=== PATIENT | male | born 1955 | race Hispanic/Latino ===

== ENCOUNTER → 2018-11-05 | Day surgery (SDC) | payer MEDICARE ==
[2018-11-03 16:16] LABS: BASOPHILS % 0.5 % (0.0-1.0); EOSINOPHILS # (AUTO) 0.1 (0.0-0.4); EOSINOPHILS % 1.8 % (0.0-6.0); HEMATOCRIT 30.8 % (38.2-49.6); HEMOGLOBIN 10.5 g/dL (14.0-18.0); LYMPHOCYTES # (AUTO) 1.6 (1.0-3.2); LYMPHOCYTES % 29.4 % (18.0-39.1); MEAN CORPUSCULAR HEMOGLOBIN 28.9 pg (28-32); MEAN CORPUSCULAR HGB CONC 34.1 g/dL (31-35); MEAN CORPUSCULAR VOLUME 84.8 fL (81-99); MONOCYTES # (AUTO) 0.4 (0.2-0.8); MONOCYTES % 6.4 % (4.4-11.3); NEUTROPHILS # (AUTO) 3.4 (2.1-6.9); NEUTROPHILS % 61.5 % (38.7-80.0); PLATELET COUNT 172 x10e3/uL (140-360); RED BLOOD COUNT 3.63 x10e6/uL (4.3-5.7); RED CELL DISTRIBUTION WIDTH 14.8 % (11.7-14.4)
[2018-11-03 16:33] LABS: ANION GAP 14.7 mmol/L (8-16); BLOOD UREA NITROGEN 12 mg/dL (7-26); BUN/CREATININE RATIO 13 (6-25); CALCIUM 9.8 mg/dL (8.4-10.2); CARBON DIOXIDE 24 mmol/L (22-29); CHLORIDE 100 mmol/L (98-107); CREATININE, SERUM 0.91 mg/dL (0.72-1.25); EST GLOMERULAR FILTRATION RATE > 60 ML/MIN (60-); GLUCOSE 227 mg/dL (74-118); POTASSIUM 3.7 mmol/L (3.5-5.1); SODIUM 135 mmol/L (136-145)
--- NOTE | 2018-11-03 16:53 | Diagnostic Imaging Report ---
EXAM: CHEST 2 VIEWS, PA and lateral DATE: 11/03/2018 Time stamp on exam: 4:07 PM INDICATION: Preoperative COMPARISON: None FINDINGS: LINES/TUBES: None LUNGS: Focal tree-in-bud opacities in the right lung base may be secondary to chronic changes. Comparison with old studies would be of benefit. If not available a CT scan of the chest may provide additional information. No consolidation or edema. PLEURA: No effusions or pneumothorax. HEART AND MEDIASTINUM: Normal size and contour. BONES AND SOFT TISSUES: Degenerative changes of the spine. IMPRESSION: Right lung base tree-in-bud opacities. Signed by: Dr. Donovan Sandoval DO on 11/03/2018 4:49 PM
--- NOTE | 2018-11-03 17:24 | Diagnostic Imaging Report ---
RADIOGRAPH(S) OF THE ABDOMEN AND PELVIS, 2 view(s) HISTORY: Preop, kidney surgery, stent, stones COMPARISON: None available. FINDINGS: On one of the images, a catheter projects over the right hemipelvis proximal coil projects in the superior aspect of the right sacral ala and the distal coil projects over the soft tissues of the perineum. Multiple nonspecific calcifications in the right hemipelvis and in the region of the prostate gland. The bones are partially obscured by stool and overlying bowel gas. A 1.7 cm nonaggressive sclerotic density projects at the left iliac bone, this may reflect a bone island or radiopaque bowel contents. IMPRESSION: 1. A catheter projects at the right hemipelvis and soft tissues of the perineum, correlate if this is within or overlying the patient. 2. Multiple nonspecific pelvic calcifications. 3. A 1.7 cm nonaggressive sclerotic density projects at the left iliac bone, this may reflect a bone island or radiopaque bowel contents. Signed by: Dr. Ishan Salmon D.O., M.M.M. on 11/03/2018 5:20 PM
[~2018-11-05] MED LIST: ATORVASTATIN CA20 MG PO; BELLADONNA/OPIUM 30 MG SUPP RC ONE; CEFTRIAXONE SOD 1 GM/NS 50 ML 50 ML IV ONE; DEXAMETHASONE SOD PHOS INJ 4 MG/ML VIAL ONE; DOXYCYCLINE HY100 MG PO; EPHEDRINE SULFATE INJ 50 MG/10 ML SYR ONE; FENTANYL CITRATE/PF 100MCG/2 ML INJ ONE; GENTAMICIN 80MG/NS 100 ML 200 ML IV ONE; HUMULIN R100 UNIT/2 SQ; IOPAMIDOL 610MG/1ML 300 MG/ML VIAL IV ONE; LIDOCAINE HCL 2% LOCAL INJ 5 ML SDV VIAL INJ ONE; LISINOPRIL10 MG PO; METFORMIN HCL500 M2 PO; MIDAZOLAM HCL 2 MG/2 ML VIAL ONE; ONDANSETRON HCL INJ 2MG/ML 2ML 2 MG/ML VIAL ONE; PROPOFOL IV EMULSION 10 MG/ML 20 ML VIAL ONE; SEVOFLURANE INHAL SOLN 250 ML PEN BTL ONE; ZOLPIDEM TARTRA10 MG PO
--- OUTSIDE RECORDS SUMMARY | 2018-11-05 09:29 | XMS REPORT | Clinical Summary ---
Author Author [facility] Address Unknown Phone Unavailable Care Team Providers Care Overseamer Name Role Phone Jenny Chacon MD PCP Allergies No Known Allergies Medications End Date Status Medication Sig Dispensed Refills Start Date Active linaclotide (LINZESS) 145 Take 145 mcg 0 mcg capsule by mouth daily before breakfast. Active lisinopril Take 10 mg by 0 (PRINIVIL,ZESTRIL) 10 mg mouth daily. tablet Active metFORMIN (GLUCOPHAGE) Take 1,000 mg 0 1,000 mg tablet by mouth 2 (two) times a day with meals. Active omeprazole (PriLOSEC) 40 Take 40 mg by 0 MG capsule mouth daily. Active oxybutynin (DITROPAN) 5 Take 5 mg by 0 MG tablet mouth 2 (two) times a day. Active tamsulosin (FLOMAX) 0.4 Take 0.4 mg 0 mg capsule by mouth 2 (two) times a day. Active insulin GLARGINE (LANTUS) Inject 50 0 100 unit/mL injection Units under (vial) the skin nightly. Active diazePAM (VALIUM) 2 MG Take 10 mg by 0 tablet mouth nightly. Active cyanocobalamin (VITAMIN Take 500 mcg 0 B-12) 500 MCG tablet by mouth daily. Active ciprofloxacin (CIPRO) 500 Take 500 mg 0 07/16/201 MG tablet by mouth 2 8 (two) times a day. Active levothyroxine (SYNTHROID, Take 50 mcg 0 LEVOXYL) 50 mcg tablet by mouth every morning. Active zolpidem (AMBIEN) 10 mg Take 10 mg by 0 tablet mouth nightly as needed for sleep. 07/20/2018 Discontinued cefuroxime (CEFTIN) 250 Take 250 mg 0 07/16/201 MG tablet by mouth 2 8 (two) times a day. 08/19/2018 dexamethasone (DECADRON) Take 1 tablet 60 tablet 0 4 MG tablet (4 mg total) 8 by mouth 2 (two) times a day with meals for 30 days. 07/30/2018 cefuroxime (CEFTIN) 500 Take 1 tablet 20 tablet 0 MG tablet (500 mg 8 total) by mouth 2 (two) times a day for 10 days. Active Problems Not on file Encounters Care Team Description Date Type Specialty John Loco MD No Show 07/21/2018 Hospital Radiology Encounter Anne-Marie Cross MA Suprasellar mass (Primary Dx) 07/21/2018 Orders Only Neurosurgery Tung Treviño MD Suprasellar mass (Primary Dx); Acute UTI 07/20/2018 Emergency Emergency Medicine after 11/04/2017 Social History Date Tobacco Use Types Packs/Day Years Used Former Smoker Smokeless Tobacco: Never Used Comments: quit 14 yrs ago Alcohol Use Drinks/Week oz/Week Comments Yes Sex Assigned at Date Recorded Not on file Industry Job Start Date Occupation Not on file Not on file Not on file Travel End Travel History Travel Start No recent travel history available. Last Filed Vital Signs Time Taken Vital Sign Reading 07/20/2018 9:14 PM LITHOGRAPHIC PROOFER Blood Pressure 149/70 07/20/2018 9:14 PM LITHOGRAPHIC PROOFER Pulse 63 07/20/2018 9:14 PM LITHOGRAPHIC PROOFER Temperature 36.2 C (97.2 F) 07/20/2018 9:14 PM LITHOGRAPHIC PROOFER Respiratory Rate 20 07/20/2018 9:14 PM LITHOGRAPHIC PROOFER Oxygen Saturation 99% - Inhaled Oxygen - Concentration 07/20/2018 9:14 PM LITHOGRAPHIC PROOFER Weight 83.9 kg (185 lb) 07/20/2018 9:14 PM LITHOGRAPHIC PROOFER Height 170.2 cm (5' 7") 07/20/2018 9:14 PM LITHOGRAPHIC PROOFER Body Mass Index 28.98 Plan of Treatment Health Maintenance Due Date Last Done Comments COLON CANCER SCREENING 2003 SHINGLES VACCINES (#1) 2003 INFLUENZA VACCINE 04/14/2018 65+ PNEUMOCOCCAL VACCINE 2018 (1 of 2 - PCV13) PNEUMOCOCCAL 2018 POLYSACCHARIDE VACCINE AGE 65 AND OVER Procedures Comments Procedure Name Priority Date/Time Associated Diagnosis URINALYSIS STAT 07/20/2018 10:00 PM LITHOGRAPHIC PROOFER GRAM STAIN Routine 07/20/2018 10:00 PM LITHOGRAPHIC PROOFER URINE CULTURE Routine 07/20/2018 10:00 PM LITHOGRAPHIC PROOFER MANUAL DIFFERENTIAL STAT 07/20/2018 9:35 PM LITHOGRAPHIC PROOFER ESTIMATED GFR STAT 07/20/2018 9:35 PM LITHOGRAPHIC PROOFER COMPREHENSIVE METABOLIC STAT 07/20/2018 PANEL 9:35 PM LITHOGRAPHIC PROOFER CBC WITH PLATELET AND STAT 07/20/2018 DIFFERENTIAL 9:[address] STROKE BRAIN WO STAT 07/20/2018 CONTRAST 9:31 PM LITHOGRAPHIC PROOFER after 11/04/2017 Results * Urinalysis (07/20/2018 10:00 PM LITHOGRAPHIC PROOFER) Glucose, UA Negative Negative [facility] Bilirubin, UA Negative Negative [facility] Ketones, UA Negative Negative [facility] Specific gravity, UA 1.010 1.001 - 1.035 [facility] Blood, UA Trace (A) Negative [facility] pH, UA 7.0 5.0 - 8.5 [facility] Protein, UA Negative Negative [facility] Urobilinogen, UA <2.0 <2.0 [facility] Nitrite, UA Negative Negative [facility] Leukocyte esterase, UA Large (A) Negative [facility] Color, UA Yellow [facility] Appearance, UA Clear [facility] Specimen Urine Performing Organization Address City/State/Zipcode Phone Number [address], [place] [address] PATHOLOGY AND GENOMIC 140 MEDICINE, [facility] * Gram stain (07/20/2018 10:00 PM LITHOGRAPHIC PROOFER) Gram stain result Occasional WBC's [facility] DEPARTMENT OF No organisms seen PATHOLOGY AND Comment: GENOMIC MEDICINE Specimen Information Specimen Source: Urine Specimen Site: Urine, clean catch Specimen Urine - Urine, clean catch Performing Organization Address City/State/Zipcode Phone Number [facility] DEPARTMENT OF [address] [place] [address] PATHOLOGY AND GENOMIC MEDICINE * Urine culture (07/20/2018 10:00 PM LITHOGRAPHIC PROOFER) Urine culture isolate Escherichia coli [facility] DEPART[facility] OF 10-4 cfu/ml PATHOLOGY AND This isolate is a enamel drier of GENOMIC MEDICINE ESBL (extended spectrum beta lactamase).This organism may be clinically resistant to penicillins, cephalosporins or aztreonam despite apparent in vitro susceptibility to some of these agents. (A) Comment: Specimen Information Specimen Source: Urine Specimen Site: Urine, clean catch Specimen Urine - Urine, clean catch Antibiotic Method Susceptibility Organism Ampicillin FILOMENA >16 mcg/mL: Resistant Escherichia coli Amoxicillin/Clavulanate FILOMENA 8/4 mcg/mL: Resistant Escherichia coli Amikacin FILOMENA <=4 mcg/mL: Susceptible Escherichia coli Aztreonam FILOMENA >16 mcg/mL: Resistant Escherichia coli Ceftazidime FILOMENA >16 mcg/mL: Resistant Escherichia coli Ciprofloxacin FILOMENA >2 mcg/mL: Resistant Escherichia coli Ceftriaxone FILOMENA >32 mcg/mL: Resistant Escherichia coli Cefuroxime Sodium FILOMENA >16 mcg/mL: Resistant Escherichia coli Cefazolin FILOMENA >32 mcg/mL: Resistant Escherichia coli Cefepime FILOMENA >16 mcg/mL: Resistant Escherichia coli Nitrofurantoin FILOMENA 32 mcg/mL: Susceptible Escherichia coli Gentamicin FILOMENA >8 mcg/mL: Resistant Escherichia coli Imipenem FILOMENA <=0.25 mcg/mL: Susceptible Escherichia coli Levofloxacin FILOMENA >4 mcg/mL: Resistant Escherichia coli Meropenem FILOMENA <=0.125 mcg/mL: Susceptible Escherichia coli Tobramycin FILOMENA 8 mcg/mL: Resistant Escherichia coli Ampicillin/Sulbactam FILOMENA >16/8 mcg/mL: Resistant Escherichia coli Trimethoprim/Sulfamethoxazole FILOMENA >2/38 mcg/mL: Resistant Escherichia coli Tetracycline FILOMENA <=1 mcg/mL: Susceptible Escherichia coli Ertapenem FILOMENA <=0.125 mcg/mL: Susceptible Escherichia coli Tigecycline FILOMENA <=0.5 mcg/mL: Susceptible Escherichia coli Cefotaxime FILOMENA mcg/mL: Resistant Escherichia coli Cephalothin FILOMENA mcg/mL: Resistant Escherichia coli Fosfomycin KB mm: Susceptible Escherichia coli Performing Organization Address City/State/Zipcode Phone Number [facility] DEPARTMENT [address] [address] PATHOLOGY AND GENOMIC MEDICINE * Estimated GFR (07/20/2018 9:35 PM LITHOGRAPHIC PROOFER) Estimated GFR >=90 mL/min/1.73 m2 DEPARTMENT OF Comment: PATHOLOGY AND [employer]ory[employer]its[employer] GENOMIC MEDICINE, rpretation [place] [address] [facility] >=90 Normal or high G2 60-89Mildly decreased [id number] Mildly to moderately decreased D4p09-14 Moderately to severely decreased G4 15-29Severely decreased G5 <15Kidney failure The eGFR was calculated using the Chronic Kidney Disease Epidemiology Collaboration (CKD-EPI) equation. Interpretation is based on recommendations of the National Kidney Foundation-Kidney Disease Outcomes Quality Initiative (NKF-KDOQI) published in 2014. Specimen Plasma specimen Performing Organization Address City/[facility]/Zipcode Phone Number [address] [address] PATHOLOGY AND GENOMIC 140 MEDICINE, [facility] * Manual differential (07/20/2018 9:35 PM LITHOGRAPHIC PROOFER) Manual differential PERFORMED [facility] DEPARTMENT OF PATHOLOGY AND GENOMIC MEDICINE Neutrophils 65.0 39.0 - 69.0 % [facility] DEPARTMENT OF PATHOLOGY AND GENOMIC MEDICINE Lymphocytes 24.0 (L) 25.0 - 45.0 % [facility] DEPARTMENT OF PATHOLOGY AND GENOMIC MEDICINE Monocytes 8.0 0.0 - 10.0 % [facility] DEPARTMENT OF PATHOLOGY AND GENOMIC MEDICINE Eosinophils 3.0 0.0 - 5.0 % [facility] DEPARTMENT OF PATHOLOGY AND GENOMIC MEDICINE Basophils 0.0 0.0 - 1.0 % [facility] DEPARTMENT OF PATHOLOGY AND GENOMIC MEDICINE Metamyelocytes 0 % [facility] DEPARTMENT OF PATHOLOGY AND GENOMIC MEDICINE Promyelocytes 0 % [facility] DEPARTMENT OF PATHOLOGY AND GENOMIC MEDICINE Platelet slide review Decreased (A) [facility] DEPARTMENT OF PATHOLOGY AND GENOMIC MEDICINE Anisocytosis Moderate [facility] DEPARTMENT OF PATHOLOGY AND GENOMIC MEDICINE Polychromasia Moderate [facility] DEPARTMENT OF PATHOLOGY AND GENOMIC MEDICINE Ovalocytes Moderate [facility] DEPARTMENT OF PATHOLOGY AND GENOMIC MEDICINE Lagrange cells Moderate (A) [facility] DEPARTMENT OF PATHOLOGY AND GENOMIC MEDICINE Enlarged platelets Moderate (A) [facility] DEPARTMENT OF PATHOLOGY AND GENOMIC MEDICINE Performing Organization Address City/[facility]/Zipcode Phone Number [facility] DEPARTMENT [address] [place] [address] PATHOLOGY AND GENOMIC MEDICINE * CBC with platelet and differential (07/20/2018 9:35 PM LITHOGRAPHIC PROOFER) WBC 5.58 4.50 - 11.00 k/uL [facility] RBC 3.36 (L) 4.40 - 6.00 m/uL [facility] HGB 10.1 (L) 14.0 - 18.0 g/dL [facility] HCT 28.6 (L) 41.0 - 51.0 % [facility] MCV 85.1 82.0 - 100.0 fL [facility] MCH 30.1 27.0 - 34.0 pg [facility] MCHC 35.3 31.0 - 37.0 g/dL [facility] RDW - SD 41.2 37.0 - 55.0 fL [facility] MPV 10.7 8.8 - 13.2 fL [facility] Platelet count 106 (L) 150 - 400 k/uL [facility] Neutrophils 65.0 39.0 - 69.0 % [facility] Lymphocytes 24.0 (L) 25.0 - 45.0 % [facility] Monocytes 8.0 0.0 - 10.0 % [facility] Eosinophils 3.0 0.0 - 5.0 % [facility] Basophils 0.0 0.0 - 1.0 % [facility] Specimen Blood Performing Organization Address City/State/Zipcode Phone Number [address] [place] [address] PATHOLOGY AND GENOMIC [facility] [address] [place] [id number] [facility] * Comprehensive metabolic panel (07/20/2018 9:35 PM LITHOGRAPHIC PROOFER) Sodium 127 (L) 135 - 148 mEq/L [facility] Potassium 3.8 3.5 - 5.0 mEq/L [facility] Chloride 97 (L) 98 - 112 mEq/L [facility] CO2 27 24 - 31 mEq/L [facility] Anion gap 3@ANIO (L) 7 - 15 mEq/L [facility] BUN 11 8 - 23 mg/dL [facility] Creatinine 0.78 0.70 - 1.20 mg/dL [facility] Glucose 230 (H) 65 - 99 mg/dL [facility] Calcium 8.8 8.8 - 10.2 mg/dL [facility] Protein 6.4 6.3 - 8.3 g/dL [facility] Albumin 3.2 (L) 3.5 - 5.0 g/dL [facility] A/G ratio 1.0 0.7 - 3.8 [facility] Alkaline phosphatase 46 40 - 129 U/L [facility] AST 13 10 - 50 U/L [facility] ALT 12 5 - 50 U/L [facility] Total bilirubin 0.2 0.0 - 1.2 mg/dL [facility] Specimen Plasma specimen Performing Organization Address City/State/Zipcode Phone Number [address] [address] PATHOLOGY AND GENOMIC [address] [place] [address] * CT Stroke Brain Wo Contrast (07/20/2018 9:31 PM LITHOGRAPHIC PROOFER) Narrative Performed At EXAMINATION: CT STROKE BRAIN WO CONTRAST RADIANT CLINICAL HISTORY: headache COMPARISON:None. TECHNIQUE: Noncontrast enhanced images of the brain were obtained from the skull base to the vertex. Both soft tissue and bone reconstruction algorithms were performed. CT scans are performed using radiation dose reduction techniques (iterative reconstruction and/or automated exposure control). Technical factors are evaluated and adjusted to ensure appropriate moderation of exposure. Automated dose management technology is applied to adjust radiation exposure while achieving a diagnostic quality image. FINDINGS: Slightly hyperdense sellar/suprasellar mass resulting in expansion of the sella, most likely representing a pituitary adenoma. This results in thinning of the clivus and dorsally, likely invasion of the right cavernous sinus, as well as invasion of the sphenoid sinus. There is no convincing evidence of hemorrhage on this noncontrast CT. No acute intracranial abnormality. Specifically, no acute ischemia, intracranial hemorrhage, or other mass. IMPRESSION: Sellar/suprasellar mass most likely represents a pituitary adenoma. Recommend correlation with MRI with and without contrast to confirm extent of disease (specify pituitary mass protocol). This can be done on a nonemergent basis. Findings discussed with TUNG TREVIÑO at 07/20/2018 9:32 PM, with acknowledgement of understanding. [facility]-[id number] Procedure Note Interface, Radiology Results Incoming - 07/20/2018 9:39 PM LITHOGRAPHIC PROOFER EXAMINATION: CT STROKE BRAIN WO CONTRAST CLINICAL HISTORY: headache COMPARISON: None. TECHNIQUE: Noncontrast enhanced images of the brain were obtained from the skull base to the vertex. Both soft tissue and bone reconstruction algorithms were performed. CT scans are performed using radiation dose reduction techniques (iterative reconstruction and/or automated exposure control). Technical factors are evaluated and adjusted to ensure appropriate moderation of exposure. Automated dose management technology is applied to adjust radiation exposure while achieving a diagnostic quality image. FINDINGS: Slightly hyperdense sellar/suprasellar mass resulting in expansion of the sella, most likely representing a pituitary adenoma. This results in thinning of the clivus and dorsally, likely invasion of the right cavernous sinus, as well as invasion of the sphenoid sinus. There is no convincing evidence of hemorrhage on this noncontrast CT. No acute intracranial abnormality. Specifically, no acute ischemia, intracranial hemorrhage, or other mass. IMPRESSION: Sellar/suprasellar mass most likely represents a pituitary adenoma. Recommend correlation with MRI with and without contrast to confirm extent of disease (specify pituitary mass protocol). This can be done on a nonemergent basis. Findings discussed with TUNG TREVIÑO at 07/20/2018 9:32 PM, with acknowledgement of understanding. [facility]-[id number] Performing Organization Address City/State/Zipcode Phone Number [facility] [address] [place] [address] after 11/04/2017 Insurance Payer Benefit Subscriber ID Type Phone Address Plan / Group [employer] xxxxxxxxx HMO -AMERIVANT AGE MCR HMO Advance Directives Patient has advance care planning documents on file. For more information, carolyne e contact: Benigno Martínez [address] [place] [address]
--- OUTSIDE RECORDS SUMMARY | 2018-11-05 09:29 | XMS REPORT ---
Author [facility] Address Unknown Phone Unavailable Care Team Providers Care Pull Socket Assembler Name Role Phone CHERYL HOPE Unavailable Unavailable Problems This patient has no known problems. Allergies, Adverse Reactions, Alerts This patient has no known allergies or adverse reactions. Medications This patient has no known medications. Results Test Description Test Time Test Comments Text Results Atomic Results Result Comments ABDOMEN-1VIEW ([facility]) 2018-11-03 17:17:00 [place] [address] Patient Name: PB BEDOLLA MR #: [id number] : 1955 Age/Sex: 63/M Req #: [id number] [facility] Physician: Ordered by: CHERYL HOPE MD Report #: [id number] Location: OR Room/Bed: Procedure: [id number] DX/ABDOMEN-1VIEW ([facility]) Exam Date: 11/03/18 Exam Time: 1613 REPORT STATUS: Signed RADIOGRAPH(S) OF THE ABDOMEN AND PELVIS, 2 view(s) HISTORY: Preop, kidney surgery, stent, stones COMPARISON: None available. FINDINGS: On one of the images, a catheter projects over the right hemipelvis proximal coil projects in the superior aspect of the right sacral ala and the distal coil projects over the soft tissues of the perineum. Multiple nonspecific calcifications in the right hemipelvis and in the region of the prostate gland. The bones are partially obscured by stool and overlying bowel gas. A 1.7 cm nonaggressive sclerotic density projects at the left iliac bone, this may reflect a bone island or radiopaque bowel contents. IMPRESSION: 1. A catheter projects at the right hemipelvis and soft tissues of the perineum, correlate if this is within or overlying the patient. 2. Multiple nonspecific pelvic calcifications. 3. A 1.7 cm nonaggressive sclerotic density projects at the left iliac bone, this may reflect a bone island or radiopaque bowel contents. Signed by: Dr. Debbi Salmon D.O., M.M.M. on 11/03/2018 5:20 PM Dictated By: DEBBI SALMON DO 19 Transcribed By: CHANCE on 11/03/181719 COPY TO: CHERYL HOPE MD CHEST 2 VIEWS 2018-11-03 16:47:00 [place] [address] Patient Name: PB BEDOLLA MR #: [id number] : 1955 Age/Sex: 63/M Req #: [id number] Adm Physician: Ordered by: CHERYL HOPE MD Report #: [id number] Location: OR Room/Bed: Procedure: [id number] DX/CHEST 2 VIEWS Exam Date: 11/03/18 Exam Time: 1613 REPORT STATUS: Signed EXAM: CHEST 2 VIEWS, PA and lateral DATE: 11/03/[address] amp on exam: 4:07 PM INDICATION: Preoperative COMPARISON: None FINDINGS: LINES/TUBES: None LUNGS: Focal tree-in-bud opacities in the right lung base may be secondary to chronic changes. Comparison with old studies would be of benefit. If not available a CT scan of the chest may provide additional information. No consolidation or edema. PLEURA: No effusions or pneumothorax. HEART AND MEDIASTINUM: Normal size and contour. BONES AND SOFT TISSUES: Degenerative changes of the spine. IMPRESSION: Right lung base tree-in-bud opacities. Signed by: Dr. Maria Isabel Sandoval DO on 11/03/2018 4:49 PM Dictated By: MARIA ISABEL SANDOVAL DO 1645 Transcribed By: CHANCE on 11/03/18 1649 COPY TO: CHERYL HOPE MD
[2018-11-05 15:00] VITALS: BP 123/85
--- NOTE | 2018-11-15 09:26 | Operative Report ---
DATE OF PROCEDURE: 11/05/2018 SURGEON: Catracho Zamorano MD PREOPERATIVE DIAGNOSES: 1. Right indwelling ureteral stent. 2. History of right nephrolithiasis. 3. Urinary tract infections. POSTOPERATIVE DIAGNOSES: 1. Right indwelling ureteral stent. 2. History of right nephrolithiasis. 3. Urinary tract infections. 4. Urethral stricture disease. OPERATIONS PERFORMED: Note, these were all staged procedures as part of a multi-stage process in managing the patient's urolithiasis. 1. Cystourethroscopy with calibration and dilation of urethral stricture disease (separate procedure performed for the diagnosis of stricture). 2. Cystourethroscopy with complicated removal of right indwelling ureteral stent (separate procedure performed for the stent). 3. Right ureteroscopy (separate procedure performed to evaluate for any residual urolithiasis). 4. Cystourethroscopy with left ureteral catheterization and retrograde ureteropyelography (separate procedure performed to evaluate the upper tract on the left hand side in light of the urinary tract infections). 5. Radiological services for supervision and interpretation of ureteroscopy. 6. Interpretation of retrograde ureteropyelography. 7. Supervision of fluoroscopy, no radiologist present. ANESTHESIA: General. COMPLICATIONS: None. CLINICAL SUMMARY: Carlton Darby is a 63-year-old man, who underwent ureteral stenting for stone surgery. He is brought to the operating room for the above procedures. He is aware of the risks of bleeding, infection, injury to adjacent structures, need for additional procedures and elected to proceed. OPERATIVE PROCEDURE IN DETAIL: Informed consent was verified. Carlton Darby was properly identified, taken to the operating room, placed on the cystoscopy table in supine position. Anesthesia was uneventfully begun. The patient was then carefully and gently repositioned in dorsal lithotomy position with all pressure points well padded. His genitalia were prepared and draped in usual sterile fashion. The 22.5-Monegasque cystoscope sheath with the visual obturator in place could not be placed past the fossa navicularis. There was a severe stricture at the fossa navicularis. This was calibrated at less than 12-Monegasque as we popped across the fossa navicularis region. We progressively dilated the patient to 26-Monegasque with female sounds. We then were able to place the cystoscope sheath into the patient's urethra. The cystoscope was brought to the mid urethra where there was a displaced stent that had migrated distally and was now located with the distal coil in the mid urethra. The stent was grasped and pulled out of the urethral meatus. A guidewire was then placed through the stent and guided to the level of the patient's kidney. The stent was then re-grasped, completely removed, and discarded. A semi-rigid ureteroscope was then placed alongside the guidewire up into the distal right ureter. No stones were noted. Flexible ureteroscope was then brought up over the guidewire and guided to the level of the patient's kidney. Panendoscopy revealed Ed's plaques, but no tumors, no stones, no suspicious lesions. We carefully re-examined the ureter as we exited and it was completely normal. A ureteral catheter was used to cannulate the left ureter and retrograde ureteropyelography was performed. Interpretation of retrograde ureteropyelography: Contrast was instilled in retrograde fashion bilaterally. There was some fullness on the right-hand side consistent with chronic hydroureteronephrosis, most likely from the displaced stent. Nevertheless, unobstructed drainage was observed fluoroscopically. The left side was unremarkable without any tumor, stones, or hydronephrosis. The patient's bladder was then drained and cystoscope was withdrawn. A Belladonna and opium suppository was placed revealing a 40 g prostate that is smooth and non-fluctuant without any nodules. The patient was then uneventfully reversed from anesthesia and taken to recovery room in stable condition. There were no complications to the procedure. The patient tolerated the procedure well. Explicit postoperative instructions were given. Plans will be to follow the patient up in the office. We will plan to perform uroflowmetry and bladder ultrasonography in the future in order to assess the patient's voiding objectively. This is in light of the trilobar prostatic hypertrophy with the prominent median lobe that was noted on today's cystoscopy. Catracho Zamorano MD [place]/MOD[facility] /[id number] cc: Jenny Chacon
== END | disposition home or self-care (01) ==
LOC: OR 09:26
PROVIDERS: ATTEND Urology
DX: N40.1 Benign prostatic hyperplasia with lower urinary tract symptoms (principal); R35.1 Nocturia; N39.44 Nocturnal enuresis; N39.0 Urinary tract infection, site not specified; Z12.5 Encounter for screening for malignant neoplasm of prostate; N47.1 Phimosis; R39.14 Feeling of incomplete bladder emptying; N41.1 Chronic prostatitis; N32.81 Overactive bladder; Z96.0 Presence of urogenital implants; Z01.810 Encounter for preprocedural cardiovascular examination; Z01.812 Encounter for preprocedural laboratory examination; Z01.811 Encounter for preprocedural respiratory examination; N35.819 Other urethral stricture, male, unspecified site; G47.33 Obstructive sleep apnea (adult) (pediatric); E78.5 Hyperlipidemia, unspecified; F32.9 Major depressive disorder, single episode, unspecified; F41.9 Anxiety disorder, unspecified; E11.9 Type 2 diabetes mellitus without complications; Z79.84 Long term (current) use of oral hypoglycemic drugs
CPT/HCPCS: 36415 ×2; 52281; 71046; 74018; 74420; 80048; 82948; 85025; 93005; J0696; J1100; J1580; J2001; J2250; J2405; J2704; Q9967

== ENCOUNTER 2018-11-27 11:13 | Emergency (ER) | payer MEDICARE ==
[~2018-11-27] VITALS: Ht 170.2 cm; Wt 81.6 kg
[~2018-11-27 11:13] MED LIST changes: -BELLADONNA/OPIUM 30 MG SUPP RC ONE; -CEFTRIAXONE SOD 1 GM/NS 50 ML 50 ML IV ONE; -DEXAMETHASONE SOD PHOS INJ 4 MG/ML VIAL ONE; -EPHEDRINE SULFATE INJ 50 MG/10 ML SYR ONE; -FENTANYL CITRATE/PF 100MCG/2 ML INJ ONE; -GENTAMICIN 80MG/NS 100 ML 200 ML IV ONE; -IOPAMIDOL 610MG/1ML 300 MG/ML VIAL IV ONE; -LIDOCAINE HCL 2% LOCAL INJ 5 ML SDV VIAL INJ ONE; -MIDAZOLAM HCL 2 MG/2 ML VIAL ONE; -ONDANSETRON HCL INJ 2MG/ML 2ML 2 MG/ML VIAL ONE; -PROPOFOL IV EMULSION 10 MG/ML 20 ML VIAL ONE; -SEVOFLURANE INHAL SOLN 250 ML PEN BTL ONE
--- OUTSIDE RECORDS SUMMARY | 2018-11-27 11:15 | XMS REPORT | Clinical Summary ---
Author Author [facility] Address Unknown Phone Unavailable Care Team Providers Care Certified First Assistant Name Role Phone Jenny Chacon MD PCP [...] Acute UTI 07/20/2018 Emergency Emergency Medicine after 11/26/2017 Social History Date Tobacco Use Types Packs/Day [...] Taken Vital Sign Reading 07/20/2018 9:14 PM [facility] Blood Pressure 149/70 07/20/2018 9:14 PM [facility] Pulse 63 07/20/2018 9:14 PM [facility] Temperature 36.2 C (97.2 F) 07/20/2018 9:14 PM [facility] Respiratory Rate 20 07/20/2018 9:14 PM [facility] Oxygen Saturation 99% - Inhaled Oxygen - Concentration 07/20/2018 9:14 PM [facility] Weight 83.9 kg (185 lb) 07/20/2018 9:14 PM [facility] Height 170.2 cm (5' 7") 07/20/2018 9:14 PM [facility] Body Mass Index 28.98 Plan of Treatment Health Maintenance Due Date Last Done Comments COLON CANCER SCREENING 2003 SHINGLES VACCINES (#1) 2003 INFLUENZA VACCINE 04/14/2018 65+ PNEUMOCOCCAL VACCINE 2018 (1 of 2 - PCV13) PNEUMOCOCCAL 2018 POLYSACCHARIDE VACCINE AGE 65 AND OVER Procedures Comments Procedure Name Priority Date/Time Associated Diagnosis URINALYSIS STAT 07/20/2018 10:00 PM [facility] GRAM STAIN Routine 07/20/2018 10:00 PM [facility] URINE CULTURE Routine 07/20/2018 10:00 PM [facility] MANUAL DIFFERENTIAL STAT 07/20/2018 9:35 PM [facility] ESTIMATED GFR STAT 07/20/2018 9:35 PM [facility] COMPREHENSIVE METABOLIC STAT 07/20/2018 PANEL 9:35 PM [facility] CBC WITH PLATELET AND STAT 07/20/2018 DIFFERENTIAL 9:[address] STROKE BRAIN WO STAT 07/20/2018 CONTRAST 9:31 PM [facility] after 11/26/2017 Results * Urinalysis (07/20/2018 10:00 PM [facility]ALLOW [facility]KER) Glucose, UA Negative Negative [facility] Bilirubin, UA Negative Negative [facility] Ketones, UA Negative Negative [facility] Specific gravity, UA 1.010 1.001 - 1.035 [facility] Blood, UA Trace (A) Negative [facility] pH, UA 7.0 5.0 - 8.5 [facility] Protein, UA Negative Negative [facility] Urobilinogen, UA <2.0 <2.0 [facility] Nitrite, UA Negative Negative [facility] Leukocyte esterase, UA Large (A) Negative [facility] Color, UA Yellow [facility] Appearance, UA Clear [facility] Specimen Urine Performing Organization Address City/State/Zipcode Phone Number [address], [place] [address] PATHOLOGY AND GENOMIC 140 MEDICINE, [facility] * Gram stain (07/20/2018 10:00 PM TALLOW MAKER) Gram stain result Occasional WBC's [facility] DEPARTMENT OF No organisms seen PATHOLOGY AND Comment: GENOMIC MEDICINE Specimen Information Specimen Source: Urine Specimen Site: Urine, clean catch Specimen Urine - Urine, clean catch Performing Organization Address City/State/Zipcode Phone Number [facility] DEPARTMENT OF [address] [place] [address] PATHOLOGY AND GENOMIC MEDICINE * Urine culture (07/20/2018 10:00 PM TALLOW MAKER) Urine culture isolate Escherichia coli [facility] DEPARTMENT OF 10-4 cfu/ml PATHOLOGY AND This isolate is a international editorial producer of GENOMIC MEDICINE ESBL (extended spectrum beta [...] FILOMENA <=0.25 mcg/mL: Susceptible Escherichia coli Levofloxacin FLIOMENA >4 mcg/mL: Resistant Escherichia coli Meropenem FILOMENA [...] coli Performing Organization Address City/State/Zipcode Phone Number [facility] DEPARTMENT [address] [address] PATHOLOGY AND GENOMIC MEDICINE * Estimated GFR (07/20/2018 9:35 PM TALLOW MAKER) Estimated GFR >=90 mL/min/1.73 m2 DEPARTMENT OF Comment: PATHOLOGY AND [employer]ater[employer]ory[employer]itsInte GENOMIC MEDICINE, rpretation [place] [address] [facility] >=90 Normal or high G2 60-89Mildly decreased [id number] Mildly to moderately decreased [id number] Moderately to severely decreased G4 15-29Severely decreased G5 <15Kidney failure The eGFR was calculated using the Chronic Kidney Disease Epidemiology Collaboration (CKD-EPI) equation. Interpretation is based on recommendations of the National Kidney Foundation-Kidney Disease Outcomes Quality Initiative (NKF-KDOQI) published in 2014. Specimen Plasma specimen Performing Organization Address City/[facility]/Zipcode Phone Number [address] [address] PATHOLOGY AND GENOMIC 140 MEDICINE, [facility] * Manual differential (07/20/2018 9:35 PM TALLOW MAKER) Manual differential PERFORMED [facility] DEPARTMENT OF PATHOLOGY AND GENOMIC MEDICINE Neutrophils 65.0 39.0 - 69.0 % [facility] DEPARTMENT OF PATHOLOGY AND GENOMIC MEDICINE Lymphocytes 24.0 (L) 25.0 - 45.0 % [facility] DEPARTMENT OF PATHOLOGY AND GENOMIC MEDICINE Monocytes 8.0 0.0 - 10.0 % [facility] DEPARTMENT OF PATHOLOGY AND GENOMIC MEDICINE Eosinophils 3.0 0.0 - 5.0 % [facility] DEPARTMENT OF PATHOLOGY AND GENOMIC MEDICINE Basophils 0.0 0.0 - 1.0 % [facility] DEPARTMENT OF PATHOLOGY AND GENOMIC MEDICINE Metamyelocytes 0 % [facility] DEPARTMENT OF PATHOLOGY AND GENOMIC MEDICINE Promyelocytes 0 % [facility] DEPARTMENT OF PATHOLOGY AND GENOMIC MEDICINE Platelet slide review Decreased (A) [facility] DEPARTMENT OF PATHOLOGY AND GENOMIC MEDICINE Anisocytosis Moderate [facility] DEPARTMENT OF PATHOLOGY AND GENOMIC MEDICINE Polychromasia Moderate [facility] DEPARTMENT OF PATHOLOGY AND GENOMIC MEDICINE Ovalocytes Moderate [facility] DEPARTMENT OF PATHOLOGY AND GENOMIC MEDICINE Aline cells Moderate (A) [facility] DEPARTMENT OF PATHOLOGY AND GENOMIC MEDICINE Enlarged platelets Moderate (A) [facility] DEPARTMENT OF PATHOLOGY AND GENOMIC MEDICINE Performing Organization Address City/[facility]/Zipcode Phone Number [facility] DEPARTMENT [address] [place] [address] PATHOLOGY AND GENOMIC MEDICINE * CBC with platelet and differential (07/20/2018 9:35 PM TALLOW MAKER) WBC 5.58 4.50 - 11.00 k/uL [facility] RBC 3.36 (L) 4.40 - 6.00 m/uL [facility] HGB 10.1 (L) 14.0 - 18.0 g/dL [facility] HCT 28.6 (L) 41.0 - 51.0 % [facility] MCV 85.1 82.0 - 100.0 fL [facility] MCH 30.1 27.0 - 34.0 pg [facility] MCHC 35.3 31.0 - 37.0 g/dL [facility] RDW - SD 41.2 37.0 - 55.0 fL [facility] MPV 10.7 8.8 - 13.2 fL [facility] Platelet count 106 (L) 150 - 400 k/uL [facility] Neutrophils 65.0 39.0 - 69.0 % [facility] Lymphocytes 24.0 (L) 25.0 - 45.0 % [facility] Monocytes 8.0 0.0 - 10.0 % [facility] Eosinophils 3.0 0.0 - 5.0 % [facility] Basophils 0.0 0.0 - 1.0 % [facility] Specimen Blood Performing Organization Address City/State/Zipcode Phone Number [address] [place] [address] PATHOLOGY AND GENOMIC [facility] [address] [facility] [address] [place] [id number] [facility] * Comprehensive metabolic panel (07/20/2018 9:35 PM [facility]ALLOW [facility]KER) Sodium 127 (L) 135 - 148 mEq/L [facility] Potassium 3.8 3.5 - 5.0 mEq/L [facility] Chloride 97 (L) 98 - 112 mEq/L [facility] CO2 27 24 - 31 mEq/L [facility] Anion gap 3@ANIO (L) 7 - 15 mEq/L [facility] BUN 11 8 - 23 mg/dL [facility] Creatinine 0.78 0.70 - 1.20 mg/dL [facility] Glucose 230 (H) 65 - 99 mg/dL [facility] Calcium 8.8 8.8 - 10.2 mg/dL [facility] Protein 6.4 6.3 - 8.3 g/dL [facility] Albumin 3.2 (L) 3.5 - 5.0 g/dL [facility] A/G ratio 1.0 0.7 - 3.8 [facility] Alkaline phosphatase 46 40 - 129 U/L [facility] AST 13 10 - 50 U/L [facility] ALT 12 5 - 50 U/L [facility] OF [facility] Total bilirubin 0.2 0.0 - 1.2 mg/dL [facility] Specimen Plasma specimen Performing Organization Address City/State/Zipcode Phone Number [address] [address] PATHOLOGY AND GENOMIC [address] [place] [address] * CT Stroke Brain Wo Contrast (07/20/2018 9:31 PM TALLOW MAKER) Narrative Performed At EXAMINATION: CT STROKE BRAIN [...] 07/20/2018 9:32 PM, with acknowledgement of understanding. [facility]-[id number] Procedure Note Interface, Radiology Results Incoming - 07/20/2018 9:39 PM TALLOW MAKER EXAMINATION: CT STROKE BRAIN WO CONTRAST CLINICAL [...] 07/20/2018 9:32 PM, with acknowledgement of understanding. [facility]-[id number] Performing Organization Address City/State/Zipcode Phone Number [facility] [address] [place] [address] after 11/26/2017 Insurance Payer Benefit Subscriber ID Type Phone Address Plan / Group [employer] xxxxxxxxx HMO -AMERIVANT AGE MCR HMO Advance Directives Patient has advance care planning documents on file. For more information, carolyne e contact: Benigno Martínez [address] [place] [address]
[2018-11-27 11:45] LABS: CLARITY,URINE HAZY (CLEAR); COLOR,URINE YELLOW (YELLOW); LEUKOCYTE ESTERASE ,URINE 2+ (NEGATIVE); NITRITE,URINE NEGATIVE (NEGATIVE); PROTEIN,URINE DIPSTICK NEGATIVE (NEGATIVE)
[2018-11-27 11:46] LABS: BILIRUBIN,URINE NEGATIVE (NEGATIVE); KETONES,URINE NEGATIVE (NEGATIVE); URINE UROBILINOGEN 0.2 mg/dL (0.2 - 1)
[2018-11-27 11:56] LABS: BACTERIA,URINE FEW /HPF; EPITHELIAL CELLS,URINE FEW /LPF; MUCUS,URINE FEW (RARE); WBC,URINE (MAN) >50 /HPF (0-5)
--- NOTE | 2018-11-27 12:00 | NUR ---
PT PROVIDED URINE SPECIMEN, APPROX 100 CC, POST VOID RESIDUAL 150CC AT THIS TIME.
--- NOTE | 2018-11-27 12:35 | NUR ---
PT VOIDED INTO URINAL, 200 CC, PVR 137.
[2018-11-27 12:36] LABS: BASOPHILS % 0.5 % (0.0-1.0); EOSINOPHILS # (AUTO) 0.1 (0.0-0.4); EOSINOPHILS % 1.3 % (0.0-6.0); HEMATOCRIT 33.3 % (38.2-49.6); HEMOGLOBIN 11.1 g/dL (14.0-18.0); LYMPHOCYTES # (AUTO) 1.5 (1.0-3.2); LYMPHOCYTES % 23.8 % (18.0-39.1); MEAN CORPUSCULAR HEMOGLOBIN 28.8 pg (28-32); MEAN CORPUSCULAR HGB CONC 33.3 g/dL (31-35); MEAN CORPUSCULAR VOLUME 86.5 fL (81-99); MONOCYTES # (AUTO) 0.4 (0.2-0.8); MONOCYTES % 6.6 % (4.4-11.3); NEUTROPHILS # (AUTO) 4.2 (2.1-6.9); NEUTROPHILS % 67.5 % (38.7-80.0); PLATELET COUNT 189 x10e3/uL (140-360); RED BLOOD COUNT 3.85 x10e6/uL (4.3-5.7); RED CELL DISTRIBUTION WIDTH 14.7 % (11.7-14.4)
--- NOTE | 2018-11-27 12:45 | NUR ---
PT VOIDED 150 CC INTO URINAL, PVR 54 CC AT THIS TIME, SALBADOR ARIAS MADE AWARE.
[2018-11-27 12:54] LABS: ALANINE AMINOTRANSFERASE 11 IU/L (0-55); ALBUMIN/GLOBULIN RATIO 1.1 (0.8-2.0); ALKALINE PHOSPHATASE 54 IU/L (40-150); BLOOD UREA NITROGEN 12 mg/dL (7-26); BUN/CREATININE RATIO 13 (6-25); CALCIUM 9.2 mg/dL (8.4-10.2); CARBON DIOXIDE 27 mmol/L (22-29); CHLORIDE 103 mmol/L (98-107); EST GLOMERULAR FILTRATION RATE > 60 ML/MIN (60-); GLUCOSE 124 mg/dL (74-118); SODIUM 139 mmol/L (136-145)
[2018-11-27] MEDS ORDERED: CEFTRIAXONE SOD 1 GM/NS 50 ML 50 ML IV ONE (13:00)
[2018-11-27 13:24] VITALS: BP 150/68
== END 2018-11-27 14:00 | disposition home or self-care (01) ==
LOC: ER 11:13
DX: R30.0 Dysuria (principal); N30.91 Cystitis, unspecified with hematuria
CPT/HCPCS: 36415; 80053; 81001; 85025; 87040; 87086; 87186; 99284; J0696

== ENCOUNTER 2018-11-30 13:53 | Inpatient (IN) | payer MEDICARE ==
[~2018-11-30] VITALS: Ht 170.2 cm; Wt 78.5 kg
--- OUTSIDE RECORDS SUMMARY | 2018-11-30 13:56 | XMS REPORT | Clinical Summary ---
Author Author [facility] Organization [facility] Address Unknown Phone Unavailable Care Team Providers Care Branch Chief Name Role Phone Jenny Chacon MD PCP [...] Acute UTI 07/20/2018 Emergency Emergency Medicine after 11/29/2017 Social History Date Tobacco Use Types Packs/Day [...] Taken Vital Sign Reading 07/20/2018 9:14 PM BICYCLE DESIGNER Blood Pressure 149/70 07/20/2018 9:14 PM BICYCLE DESIGNER Pulse 63 07/20/2018 9:14 PM BICYCLE DESIGNER Temperature 36.2 C (97.2 F) 07/20/2018 9:14 PM BICYCLE DESIGNER Respiratory Rate 20 07/20/2018 9:14 PM BICYCLE DESIGNER Oxygen Saturation 99% - Inhaled Oxygen - Concentration 07/20/2018 9:14 PM BICYCLE DESIGNER Weight 83.9 kg (185 lb) 07/20/2018 9:14 PM BICYCLE DESIGNER Height 170.2 cm (5' 7") 07/20/2018 9:14 PM BICYCLE DESIGNER Body Mass Index 28.98 Plan of Treatment Health Maintenance Due Date Last Done Comments COLON CANCER SCREENING 2003 SHINGLES VACCINES (#1) 2003 INFLUENZA VACCINE 04/14/2018 65+ PNEUMOCOCCAL VACCINE 2018 (1 of 2 - PCV13) PNEUMOCOCCAL 2018 POLYSACCHARIDE VACCINE AGE 65 AND OVER Procedures Comments Procedure Name Priority Date/Time Associated Diagnosis URINALYSIS STAT 07/20/2018 10:00 PM BICYCLE DESIGNER GRAM STAIN Routine 07/20/2018 10:00 PM BICYCLE DESIGNER URINE CULTURE Routine 07/20/2018 10:00 PM BICYCLE DESIGNER MANUAL DIFFERENTIAL STAT 07/20/2018 9:35 PM BICYCLE DESIGNER ESTIMATED GFR STAT 07/20/2018 9:35 PM BICYCLE DESIGNER COMPREHENSIVE METABOLIC STAT 07/20/2018 PANEL 9:35 PM BICYCLE DESIGNER CBC WITH PLATELET AND STAT 07/20/2018 DIFFERENTIAL 9:[address] STROKE BRAIN WO STAT 07/20/2018 CONTRAST 9:31 PM BICYCLE DESIGNER after 11/29/2017 Results * Urinalysis (07/20/2018 10:00 PM BICYCLE DESIGNER) Glucose, UA Negative Negative [facility] Bilirubin, UA Negative Negative [facility] Ketones, UA Negative Negative [facility] Specific gravity, UA 1.010 1.001 - 1.035 [facility] Blood, UA Trace (A) Negative [facility] pH, UA 7.0 5.0 - 8.5 [facility] Protein, UA Negative Negative [facility] Urobilinogen, UA <2.0 <2.0 [facility] Nitrite, UA Negative Negative [facility] Leukocyte esterase, UA Large (A) Negative [facility] Color, UA Yellow [facility] Appearance, UA Clear [facility] Specimen Urine Performing Organization Address City/State/Zipcode Phone Number [address], [place] [address] PATHOLOGY AND GENOMIC 140 MEDICINE, [facility] * Gram stain (07/20/2018 10:00 PM BICYCLE DESIGNER) Gram stain result Occasional WBC's [facility] DEPARTMENT OF No organisms seen PATHOLOGY AND Comment: GENOMIC MEDICINE Specimen Information Specimen Source: Urine Specimen Site: Urine, clean catch Specimen Urine - Urine, clean catch Performing Organization Address City/State/Zipcode Phone Number [facility] DEPARTMENT OF [address] [place] [address] PATHOLOGY AND GENOMIC MEDICINE * Urine culture (07/20/2018 10:00 PM BICYCLE DESIGNER) Urine culture isolate Escherichia coli [facility] DEPART[facility] OF 10-4 cfu/ml PATHOLOGY AND This isolate is a blindstitch lining feller of GENOMIC MEDICINE ESBL (extended spectrum beta [...] coli Performing Organization Address City/State/Zipcode Phone Number [facility] DEPART[facility] [address] [address] PATHOLOGY AND GENOMIC MEDICINE * Estimated GFR (07/20/2018 9:35 PM BICYCLE DESIGNER) Estimated GFR >=90 mL/min/1.73 m2 DEPARTMENT OF Comment: PATHOLOGY AND CatergoryUnitsInte GENOMIC MEDICINE, rpretation [place] [address] [facility] >=90 Normal or high G2 60-89Mildly decreased [id number] Mildly to moderately decreased [id number] Moderately to severely decreased G4 15-29Severely decreased G5 <15Kidney failure The eGFR was calculated using the Chronic Kidney Disease Epidemiology Collaboration (CKD-EPI) equation. Interpretation is based on recommendations of the National Kidney Foundation-Kidney Disease Outcomes Quality Initiative (NKF-KDOQI) published in 2014. Specimen Plasma specimen Performing Organization Address City/[facility]/Zipcode Phone Number [address] [address] PATHOLOGY AND GENOMIC 140 MEDICINE, [facility] * Manual differential (07/20/2018 9:35 PM BICYCLE DESIGNER) Manual differential PERFORMED [facility] DEPARTMENT OF PATHOLOGY AND GENOMIC MEDICINE Neutrophils 65.0 39.0 - 69.0 % [facility] DEPARTMENT OF PATHOLOGY AND GENOMIC MEDICINE Lymphocytes 24.0 (L) 25.0 - 45.0 % [facility] DEPARTMENT OF PATHOLOGY AND GENOMIC MEDICINE Monocytes 8.0 0.0 - 10.0 % [facility] DEPARTMENT OF PATHOLOGY AND GENOMIC MEDICINE Eosinophils 3.0 0.0 - 5.0 % [facility] DEPARTMENT OF PATHOLOGY AND GENOMIC MEDICINE Basophils 0.0 0.0 - 1.0 % [facility] DEPARTMENT OF PATHOLOGY AND GENOMIC MEDICINE Metamyelocytes 0 % [facility] DEPARTMENT OF PATHOLOGY AND GENOMIC MEDICINE Promyelocytes 0 % [facility] DEPARTMENT OF PATHOLOGY AND GENOMIC MEDICINE Platelet slide review Decreased (A) [facility] DEPARTMENT OF PATHOLOGY AND GENOMIC MEDICINE Anisocytosis Moderate [facility] DEPARTMENT OF PATHOLOGY AND GENOMIC MEDICINE Polychromasia Moderate [facility] DEPARTMENT OF PATHOLOGY AND GENOMIC MEDICINE Ovalocytes Moderate [facility] DEPARTMENT OF PATHOLOGY AND GENOMIC MEDICINE [place] cells Moderate (A) [facility] DEPARTMENT OF PATHOLOGY AND GENOMIC MEDICINE Enlarged platelets Moderate (A) [facility] DEPARTMENT OF PATHOLOGY AND GENOMIC MEDICINE Performing Organization Address City/[facility]/Zipcode Phone Number [facility] DEPARTMENT [address] [place] [address] PATHOLOGY AND GENOMIC MEDICINE * CBC with platelet and differential (07/20/2018 9:35 PM BICYCLE DESIGNER) WBC 5.58 4.50 - 11.00 k/uL [facility] RBC 3.36 (L) 4.40 - 6.00 m/uL [facility] HGB 10.1 (L) 14.0 - 18.0 g/dL [facility] HCT 28.6 (L) 41.0 - 51.0 % [facility] MCV 85.1 82.0 - 100.0 fL [facility] MCH 30.1 27.0 - 34.0 pg [facility] MCHC 35.3 31.0 - 37.0 g/dL [facility] RDW - SD 41.2 37.0 - 55.0 fL [facility] MPV 10.7 8.8 - 13.2 fL [facility] Platelet count 106 (L) 150 - 400 k/uL [facility] Neutrophils 65.0 39.0 - 69.0 % [facility] Lymphocytes 24.0 (L) 25.0 - 45.0 % [facility] Monocytes 8.0 0.0 - 10.0 % [facility] Eosinophils 3.0 0.0 - 5.0 % [facility] Basophils 0.0 0.0 - 1.0 % [facility] Specimen Blood Performing Organization Address City/State/Zipcode Phone Number [address] [place] [address] PATHOLOGY AND GENOMIC 140 [facility] [address] [facility] [address] [address] [place] [phone] [facility] * Comprehensive metabolic panel (07/20/2018 9:35 PM BICYCLE DESIGNER) Sodium 127 (L) 135 - 148 mEq/L [facility] Potassium 3.8 3.5 - 5.0 mEq/L DEPART[facility] OF PATHOLOGY AND [facility] Chloride 97 (L) 98 - 112 mEq/L [facility]PART[facility] OF PATHOLOGY AND [facility] CO2 27 24 - 31 mEq/L [facility] OF PATHOLOG[facility] Anion gap 3@ANIO (L) 7 - 15 mEq/L DEPART[facility] OF PATHOLOGY AND [facility] BUN 11 8 - 23 mg/dL DEPART[facility] OF PATHOLOG[facility] Creatinine 0.78 0.70 - 1.20 mg/dL [facility] Glucose 230 (H) 65 - 99 mg/dL [facility] Calcium 8.8 8.8 - 10.2 mg/dL [facility] OF PATH[facility] Protein 6.4 6.3 - 8.3 g/dL [facility] PATHOLOGY AND GENOMIC MEDICINECH[facility] Albumin 3.2 (L) 3.5 - 5.0 g/dL [facility] PATHOLOGY AND GENOMIC MEDICINECH[facility] A/G ratio 1.0 0.7 - 3.8 [facility] OF PATHOLOGY AND GENOMIC MEDICINECHI [facility] Alkaline phosphatase 46 40 - 129 U/L DEPARTMENT OF PATHOLOGY AND [facility]IC [facility]INE[facility] AST 13 10 - 50 U/L DEPARTMENT OF PATHOLOGY AND [facility]OMIC [facility]INECH[facility] ALT 12 5 - 50 U/L [facility] OF PATHOLOGY AND GENOMIC MEDICINECHI [facility] Total bilirubin 0.2 0.0 - 1.2 mg/dL [facility] PATHOLOGY AND GENOMIC MEDICINECH[facility] Specimen Plasma specimen Performing Organization Address City/State/Zipcode Phone Number [address] [address] PATHOLOGY AND GENOMIC [address] [place] [address] * CT Stroke Brain Wo Contrast (07/20/2018 9:31 PM BICYCLE DESIGNER) Narrative Performed At EXAMINATION: CT STROKE BRAIN [...] 07/20/2018 9:32 PM, with acknowledgement of understanding. [facility]-[id number] Procedure Note Interface, Radiology Results Incoming - 07/20/2018 9:39 PM BICYCLE DESIGNER EXAMINATION: CT STROKE BRAIN WO CONTRAST CLINICAL [...] 07/20/2018 9:32 PM, with acknowledgement of understanding. [facility]-[id number] Performing Organization Address City/State/Zipcode Phone Number [facility] [address] [place] [address] after 11/29/2017 Insurance Payer Benefit Subscriber ID Type Phone Address Plan / Group [employer] xxxxxxxxx HMO -AMERIVANT AGE MCR HMO Advance Directives Patient has advance care planning documents on file. For more information, carolyne e contact: Benigno Martínez [address] [place] [address]
--- NOTE | 2018-11-30 14:55 | NUR ---
SPOKE WITH XIMENA MCMANUS AND DR. HARDEN REGARDING PATIENT C/O WEAKNESS DUE TO MACROBID; PATIENT STATES HE'S HAD 2 DOSES THUS FAR; ONLY TAKES WITH A COUPLE OF CRACKERS; PATIENT CULTURE RESULTS IN [employer] AND BEING REVIEWED AT THIS TIME
[2018-11-30 16:14] LABS: CLARITY,URINE CLEAR (CLEAR); COLOR,URINE COLORLESS (YELLOW)
[2018-11-30 16:15] LABS: BILIRUBIN,URINE NEGATIVE (NEGATIVE); KETONES,URINE NEGATIVE (NEGATIVE); LEUKOCYTE ESTERASE ,URINE 1+ (NEGATIVE); NITRITE,URINE NEGATIVE (NEGATIVE); PROTEIN,URINE DIPSTICK NEGATIVE (NEGATIVE); URINE UROBILINOGEN 0.2 mg/dL (0.2 - 1)
[2018-11-30 16:29] LABS: BACTERIA,URINE FEW /HPF
--- NOTE | 2018-11-30 16:32 | Diagnostic Imaging Report ---
Examination: Single AP view of the chest. COMPARISON: 11/03/2018 INDICATION: Dizziness DISCUSSION: Lungs are well-inflated. Nodular opacities in the right lung base are less conspicuous on the current study. No consolidation, pleural effusion, or pneumothorax. Stable cardiomediastinal contour with mild tortuosity of the ascending thoracic aorta. Normal heart size. No pulmonary edema. No acute osseous abnormality. IMPRESSION: No acute cardiopulmonary abnormality. Right lung base tree-in-bud opacities are less conspicuous on the current study. Please refer to the report for the chest radiograph 11/03/2018 for impression and recommendations. Signed by: Dr. John Wood M.D. on 11/30/2018 4:29 PM
[2018-11-30 16:43] LABS: BASOPHILS % 0.5 % (0.0-1.0); EOSINOPHILS # (AUTO) 0.1 (0.0-0.4); EOSINOPHILS % 1.8 % (0.0-6.0); HEMATOCRIT 33.9 % (38.2-49.6); HEMOGLOBIN 11.5 g/dL (14.0-18.0); LYMPHOCYTES # (AUTO) 2.1 (1.0-3.2); LYMPHOCYTES % 32.1 % (18.0-39.1); MEAN CORPUSCULAR HGB CONC 33.9 g/dL (31-35); MEAN CORPUSCULAR VOLUME 85.4 fL (81-99); MONOCYTES # (AUTO) 0.5 (0.2-0.8); MONOCYTES % 7.9 % (4.4-11.3); NEUTROPHILS # (AUTO) 3.8 (2.1-6.9); NEUTROPHILS % 57.4 % (38.7-80.0); PLATELET COUNT 178 x10e3/uL (140-360); RED BLOOD COUNT 3.97 x10e6/uL (4.3-5.7); RED CELL DISTRIBUTION WIDTH 14.9 % (11.7-14.4)
[2018-11-30 17:06] LABS: ALANINE AMINOTRANSFERASE 9 IU/L (0-55); ALBUMIN 4.1 g/dL (3.5-5.0); ALKALINE PHOSPHATASE 65 IU/L (40-150); ANION GAP 13.2 mmol/L (8-16); BLOOD UREA NITROGEN 17 mg/dL (7-26); BUN/CREATININE RATIO 20 (6-25); CALCIUM 10.3 mg/dL (8.4-10.2); CARBON DIOXIDE 25 mmol/L (22-29); CHLORIDE 104 mmol/L (98-107); CREATINE KINASE 101 IU/L (30-200); CREATININE, SERUM 0.85 mg/dL (0.72-1.25); EST GLOMERULAR FILTRATION RATE > 60 ML/MIN (60-); GLUCOSE 109 mg/dL (74-118); MAGNESIUM 2.1 MG/DL (1.3-2.1); POTASSIUM 4.2 mmol/L (3.5-5.1); SODIUM 138 mmol/L (136-145)
[2018-11-30] MEDS ORDERED: ACETAMINOPHEN 325 MG TAB PO NR (18:45)
[2018-11-30] MEDS ORDERED: ONDANSETRON HCL INJ 2MG/ML 2ML 2 MG/ML VIAL IV NR (18:45)
[2018-11-30] MEDS ORDERED: DEXTROSE 50% SYRINGE 50 ML IV PRN ×2 (19:45)
--- OUTSIDE RECORDS SUMMARY | 2018-11-30 19:49 | XMS REPORT | Clinical Summary ---
Author Author [facility] Organization [facility] Address Unknown Phone Unavailable Care Team Providers Care Circulation Tender Name Role Phone Jenny Chacon MD PCP [...] Encounters Care Team Description Date Type Specialty Jhon Loco MD No Show 07/21/2018 Hospital Radiology [...] Taken Vital Sign Reading 07/20/2018 9:14 PM MASTER MOTORCYCLE TECHNICIAN Blood Pressure 149/70 07/20/2018 9:14 PM MASTER MOTORCYCLE TECHNICIAN Pulse 63 07/20/2018 9:14 PM MASTER MOTORCYCLE TECHNICIAN Temperature 36.2 C (97.2 F) 07/20/2018 9:14 PM MASTER MOTORCYCLE TECHNICIAN Respiratory Rate 20 07/20/2018 9:14 PM MASTER MOTORCYCLE TECHNICIAN Oxygen Saturation 99% - Inhaled Oxygen - Concentration 07/20/2018 9:14 PM MASTER MOTORCYCLE TECHNICIAN Weight 83.9 kg (185 lb) 07/20/2018 9:14 PM MASTER MOTORCYCLE TECHNICIAN Height 170.2 cm (5' 7") 07/20/2018 9:14 PM MASTER MOTORCYCLE TECHNICIAN Body Mass Index 28.98 Plan of Treatment Health Maintenance Due Date Last Done Comments COLON CANCER SCREENING 2003 SHINGLES VACCINES (#1) 2003 INFLUENZA VACCINE 04/14/2018 65+ PNEUMOCOCCAL VACCINE 2018 (1 of 2 - PCV13) PNEUMOCOCCAL 2018 POLYSACCHARIDE VACCINE AGE 65 AND OVER Procedures Comments Procedure Name Priority Date/Time Associated Diagnosis URINALYSIS STAT 07/20/2018 10:00 PM MASTER MOTORCYCLE TECHNICIAN GRAM STAIN Routine 07/20/2018 10:00 PM MASTER MOTORCYCLE TECHNICIAN URINE CULTURE Routine 07/20/2018 10:00 PM MASTER MOTORCYCLE TECHNICIAN MANUAL DIFFERENTIAL STAT 07/20/2018 9:35 PM MASTER MOTORCYCLE TECHNICIAN ESTIMATED GFR STAT 07/20/2018 9:35 PM MASTER MOTORCYCLE TECHNICIAN COMPREHENSIVE METABOLIC STAT 07/20/2018 PANEL 9:35 PM MASTER MOTORCYCLE TECHNICIAN CBC WITH PLATELET AND STAT 07/20/2018 DIFFERENTIAL 9:35 PM MASTER MOTORCYCLE TECHNICIAN CT STROKE BRAIN WO STAT 07/20/2018 CONTRAST 9:31 PM MASTER MOTORCYCLE TECHNICIAN after 11/29/2017 Results * Urinalysis (07/20/2018 10:00 PM MASTER MOTORCYCLE TECHNICIAN) Glucose, UA Negative Negative [facility] Bilirubin, UA Negative Negative [facility] Ketones, UA Negative Negative [facility] Specific gravity, UA 1.010 1.001 - 1.035 [facility] Blood, UA Trace (A) Negative [facility] pH, UA 7.0 5.0 - 8.5 [facility] Protein, UA Negative Negative [facility] Urobilinogen, UA <2.0 <2.0 [facility] Nitrite, UA Negative Negative [facility] Leukocyte esterase, UA Large (A) Negative [facility] Color, UA Yellow [facility] Appearance, UA Clear [facility] Specimen Urine Performing Organization Address City/State/Zipcode Phone Number [address], [place] [address] PATHOLOGY AND GENOMIC 140 MEDICINE, [facility] * Gram stain (07/20/2018 10:00 PM MASTER MOTORCYCLE TECHNICIAN) Gram stain result Occasional WBC's [facility] DEPARTMENT OF No organisms seen PATHOLOGY AND Comment: GENOMIC MEDICINE Specimen Information Specimen Source: Urine Specimen Site: Urine, clean catch Specimen Urine - Urine, clean catch Performing Organization Address City/State/Zipcode Phone Number [facility] DEPARTMENT OF [address] [place] [address] PATHOLOGY AND GENOMIC MEDICINE * Urine culture (07/20/2018 10:00 PM MASTER MOTORCYCLE TECHNICIAN) Urine culture isolate Escherichia coli [facility] DEPARTMENT OF 10-4 cfu/ml PATHOLOGY AND This isolate is a cattle producers of GENOMIC MEDICINE ESBL (extended spectrum beta [...] coli Performing Organization Address City/State/Zipcode Phone Number [facility] DEPARTMENT [address] [address] PATHOLOGY AND GENOMIC MEDICINE * Estimated GFR (07/20/2018 9:35 PM MASTER MOTORCYCLE TECHNICIAN) Estimated GFR >=90 mL/min/1.73 m2 DEPARTMENT OF Comment: PATHOLOGY AND CatergoryUnitsInte GENOMIC MEDICINE, rpretation [place] [address] CENTER >=90 Normal or high G2 60-89Mildly decreased [id number] Mildly to moderately decreased [id number] Moderately to severely decreased G4 15-29Severely decreased G5 <15Kidney failure The eGFR was calculated using the Chronic Kidney Disease Epidemiology Collaboration (CKD-EPI) equation. Interpretation is based on recommendations of the National Kidney Foundation-Kidney Disease Outcomes Quality Initiative (NKF-KDOQI) published in 2014. Specimen Plasma specimen Performing Organization Address City/[facility]/Zipcode Phone Number [address] [address] PATHOLOGY AND GENOMIC 140 MEDICINE, [facility] * Manual differential (07/20/2018 9:35 PM MASTER MOTORCYCLE TECHNICIAN) Manual differential PERFORMED [facility] DEPARTMENT OF PATHOLOGY AND GENOMIC MEDICINE Neutrophils 65.0 39.0 - 69.0 % [facility] DEPARTMENT OF PATHOLOGY AND GENOMIC MEDICINE Lymphocytes 24.0 (L) 25.0 - 45.0 % [facility] DEPARTMENT OF PATHOLOGY AND GENOMIC MEDICINE Monocytes 8.0 0.0 - 10.0 % [facility] DEPARTMENT OF PATHOLOGY AND GENOMIC MEDICINE Eosinophils 3.0 0.0 - 5.0 % [facility] DEPARTMENT OF PATHOLOGY AND GENOMIC MEDICINE Basophils 0.0 0.0 - 1.0 % [facility] DEPARTMENT OF PATHOLOGY AND GENOMIC MEDICINE Metamyelocytes 0 % [facility] DEPARTMENT OF PATHOLOGY AND GENOMIC MEDICINE Promyelocytes 0 % [facility] DEPARTMENT OF PATHOLOGY AND GENOMIC MEDICINE Platelet slide review Decreased (A) [facility] DEPARTMENT OF PATHOLOGY AND GENOMIC MEDICINE Anisocytosis Moderate [facility] DEPARTMENT OF PATHOLOGY AND GENOMIC MEDICINE Polychromasia Moderate [facility] DEPARTMENT OF PATHOLOGY AND GENOMIC MEDICINE Ovalocytes Moderate [facility] DEPARTMENT OF PATHOLOGY AND GENOMIC MEDICINE [place] cells Moderate (A) [facility] DEPARTMENT OF PATHOLOGY AND GENOMIC MEDICINE Enlarged platelets Moderate (A) [facility] DEPARTMENT OF PATHOLOGY AND GENOMIC MEDICINE Performing Organization Address City/[facility]/Zipcode Phone Number [facility] DEPARTMENT [address] [place] [address] PATHOLOGY AND GENOMIC MEDICINE * CBC with platelet and differential (07/20/2018 9:35 PM MASTER MOTORCYCLE TECHNICIAN) WBC 5.58 4.50 - 11.00 k/uL [facility] RBC 3.36 (L) 4.40 - 6.00 m/uL [facility] HGB 10.1 (L) 14.0 - 18.0 g/dL [facility] HCT 28.6 (L) 41.0 - 51.0 % [facility] MCV 85.1 82.0 - 100.0 fL [facility] MCH 30.1 27.0 - 34.0 pg [facility] MCHC 35.3 31.0 - 37.0 g/dL [facility] RDW - SD 41.2 37.0 - 55.0 fL [facility] MPV 10.7 8.8 - 13.2 fL [facility] Platelet count 106 (L) 150 - 400 k/uL [facility] Neutrophils 65.0 39.0 - 69.0 % [facility] Lymphocytes 24.0 (L) 25.0 - 45.0 % [facility] Monocytes 8.0 0.0 - 10.0 % [facility] Eosinophils 3.0 0.0 - 5.0 % [facility] Basophils 0.0 0.0 - 1.0 % [facility] Specimen Blood Performing Organization Address City/State/Zipcode Phone Number [address] [place] [address] PATHOLOGY AND GENOMIC 140 [facility] [address] [facility] [address] [place] [phone] [facility] [place] * Comprehensive metabolic panel (07/20/2018 9:35 PM MASTER MOTORCYCLE TECHNICIAN) Sodium 127 (L) 135 - 148 mEq/L [facility] Potassium 3.8 3.5 - 5.0 mEq/L [facility] Chloride 97 (L) 98 - 112 mEq/L [facility] CO2 27 24 - 31 mEq/L [facility] Anion gap 3@ANIO (L) 7 - 15 mEq/L [facility] BUN 11 8 - 23 mg/dL [facility] Creatinine 0.78 0.70 - 1.20 mg/dL [facility] Glucose 230 (H) 65 - 99 mg/dL [facility] Calcium 8.8 8.8 - 10.2 mg/dL [facility] Protein 6.4 6.3 - 8.3 g/dL [facility] PATHOLOGY AND [facility] Albumin 3.2 (L) 3.5 - 5.0 g/dL [facility] PATHOLOGY AND [facility] A/G ratio 1.0 0.7 - 3.8 [facility] OF PATHOLOGY AND [facility] Alkaline phosphatase 46 40 - 129 U/L [facility] AST 13 10 - 50 U/L [facility] ALT 12 5 - 50 U/L [facility] OF PATHOLOGY AND [facility] Total bilirubin 0.2 0.0 - 1.2 mg/dL [facility] PATHOLOGY AND [facility] Specimen Plasma specimen Performing Organization Address City/State/Zipcode Phone Number [address] [address] PATHOLOGY AND GENOMIC [address] [place] [address] * CT Stroke Brain Wo Contrast (07/20/2018 9:31 PM MASTER MOTORCYCLE TECHNICIAN) Narrative Performed At EXAMINATION: CT STROKE BRAIN [...] 07/20/2018 9:32 PM, with acknowledgement of understanding. [facility]-[id number] Procedure Note Interface, Radiology Results Incoming - 07/20/2018 9:39 PM MASTER MOTORCYCLE TECHNICIAN EXAMINATION: CT STROKE BRAIN WO CONTRAST CLINICAL [...] 07/20/2018 9:32 PM, with acknowledgement of understanding. [facility]-[id number] Performing Organization Address City/State/Zipcode Phone Number [facility] [address] [place] [address] after 11/29/2017 Insurance Payer Benefit Subscriber ID Type Phone Address Plan / Group [employer] xxxxxxxxx HMO -AMERIVANT AGE MCR HMO Advance Directives Patient has advance care planning documents on file. For more information, carolyne e contact: Benigno Martínez [address] [place] [address]
--- NOTE | 2018-11-30 20:23 | Diagnostic Imaging Report ---
EXAMINATION: Head CT HISTORY: Dizziness, weakness. COMPARISON: None. TECHNIQUE: Multidetector axial images were obtained without contrast from the foramen magnum to the vertex . The images were reconstructed using brain and bone algorithms. Thin section brain images were reformatted into coronal and sagittal planes. Image quality: Motion/streaking artifact limits the evaluation of the skull base and posterior cranial fossa. Dose modulation, iterative reconstruction, and/or weight based adjustment of the mA/kV was utilized to reduce the radiation dose to as low as reasonably achievable. FINDINGS: Parenchyma: 1. No abnormal densities. 2. No mass or hemorrhage. No CT evidence of acute territorial vascular insult. Extra-axial spaces:No abnormal density. No extra-axial fluid collections Brain volume: Normal for age. Ventricles: No hydrocephalus or displacement. Arteries: No density suggestive of thrombus. Dural sinuses: No abnormal density. Extra-axial spaces: No abnormal density. Foramen magnum: No mass, Chiari malformation, or basilar invagination. Sella: Enlarged with thinning/erosion of the floor of the sella and anterior/inferior wall of the sphenoid sinus as well as the dorsum sella and upper clivus, indicating chronicity of the process. The MR sella is occupied by a large sellar/infrasellar and suprasellar mass that measures approximately 2.8 cm superior to inferior x 2.1 cm AP x 2.5 cm transverse diameter, the mass is extending inferiorly to completely fill the sphenoid sinuses, the suprasellar extension is abutting the inferior margin of the optic chiasm without definite compression. Probable extension into the right greater than left cavernous sinuses. Paranasal/mastoid sinuses: The sphenoid sinus is completely filled by above-mentioned sellar/suprasellar mass. Skull/Scalp: No lytic or blastic lesions. No fractures. IMPRESSION: 1. No acute intracranial abnormalities to explain the patient's symptoms. 2. 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 Signed by: Dr. Krista Figueroa M.D. on 11/30/2018 8:20 PM
[2018-11-30] MEDS ORDERED: MECLIZINE HCL 12.5 MG TAB PO SCH (21:00)
[2018-11-30] MEDS ORDERED: INSULIN REGULAR, HUMAN 100 UNIT/1 ML 3ML VIAL SQ SCH (21:00)
[2018-11-30] MEDS: MEROPENEM 500MG/ NS 50ML 50 ML IV SCH (21:31)
[2018-11-30] MEDS: INSULIN LISPRO 100 UNIT/1 ML 3ML VIAL SQ SCH (21:31)
[2018-11-30] MEDS: ATORVASTATIN 20 MG TAB PO SCH (21:31)
--- NOTE | 2018-11-30 22:30 | NUR ---
The patient arrived on the floor at 2231 from the ER for UTI and dizziness. Received bedside shift report from charge nurse. Patient is alert and oriented x3. Performed comprehensive assessment on patient. Patient reported no SOB, chest pain other than painful urination due to UTI. RN provided POC to patient. Discussed with patient about fall prevention. Patient will receive IV antibiotic. Verbalized understanding.
[2018-11-30 23:00] VITALS: BP 166/65
[2018-11-30 23:44] VITALS: BP 166/65
[2018-12-01] MEDS: ZOLPIDEM TARTRATE 10 MG TAB PO SCH ×2 (00:03→22:00)
--- NOTE | 2018-12-01 02:19 | History and Physical ---
CHIEF COMPLAINT: Generalized weakness. Shortness of breath. Dizziness. Some cough. HISTORY: The patient is a 63-year-old male with history of ureteral stent especially on the right associated with right side of kidney with recurrent urinary tract infection and ureteral strictures, came in to the hospital, complaining of increasing weakness and not feeling well. The patient recently started on Macrobid for multiresistant bacterial urinary tract infection. His last procedure was in November 05, 2018. At that time, he had a right indwelling ureteral stent with strictures, status post cystourethroscopy with dilatation of urethral strictures and right ureteroscopy with removal of right indwelling ureteral stent. The patient now had some increasing cough and shortness of breath. His chest x-ray in the emergency room showed that he had a right lung base tree-in-bud opacity, suspicious for infection. The patient is otherwise stable however. He does have some cough and low-grade fever at home. He has had some weakness, but no chest pain and no resting shortness of breath. PAST MEDICAL HISTORY: Prostate infection, urinary tract infection recurrent, ureteral strictures, history of right ureteral indwelling stent that was removed, diabetes type 2 on insulin therapy, hypertension, dyslipidemia. PAST SURGICAL HISTORY: Urological procedures as mentioned above. SOCIAL HISTORY: The patient was an ex-smoker. He denies alcohol use. No recreational drugs. ALLERGIES: NO KNOWN ALLERGY. HOME MEDICATION: The patient is on atorvastatin, doxycycline, Macrobid, metformin, Ambien, lisinopril, and insulin. PHYSICAL EXAMINATION: VITAL SIGNS: Temperature is 97.3, blood pressure 151/93, pulse rate 65, respirations 18. GENERAL: The patient is not in acute distress. He is a little anxious. HEENT: Normocephalic, atraumatic. Anicteric. NECK: Supple grossly. PULMONARY: Diminished breath sound with some courses. CARDIOVASCULAR: S1, S2. Regular rate and rhythm. ABDOMEN: Soft. Suprapubic tenderness. EXTREMITIES: No cyanosis or edema. NEUROLOGIC: No gross focal deficit. LABORATORY DATA: Sodium is 138, potassium 4.2, chloride 104, bicarb 25, BUN is 33, creatinine 0.8, glucose is 109. WBC 6.6, hemoglobin 11.5, hematocrit 33.9, and platelet is 179. Urinalysis, 1+ leukocyte esterase and wbc of 20, few urine bacteria, but the patient is already on Macrobid antibiotics. IMPRESSION: 1. Possible pneumonia, giving the patient's symptoms as mentioned above. Increasing shortness of breath with exertion, low-grade fever, cough. 2. Suprapubic pain, dysuria with urinary tract infection. Reviewing his home urine, recent urine culture grew out that the patient had multiresistant bacteria. 3. Multiple chronic baseline problem. PLAN: Insulin sliding scale coverage, antibiotics, meropenem for now. We will repeat the patient's lab workup. CT of the chest without contrast. We will adjust his medication, pending on further laboratory result and with the CT scan result. MD DUANE Ortiz/DC /[id number]
[2018-12-01 04:42] VITALS: BP 121/59
[2018-12-01 05:55] LABS: BASOPHILS % 0.5 % (0.0-1.0); EOSINOPHILS # (AUTO) 0.2 (0.0-0.4); EOSINOPHILS % 3.1 % (0.0-6.0); HEMATOCRIT 34.4 % (38.2-49.6); HEMOGLOBIN 11.4 g/dL (14.0-18.0); LYMPHOCYTES # (AUTO) 2.2 (1.0-3.2); LYMPHOCYTES % 34.1 % (18.0-39.1); MEAN CORPUSCULAR HEMOGLOBIN 28.7 pg (28-32); MEAN CORPUSCULAR HGB CONC 33.1 g/dL (31-35); MEAN CORPUSCULAR VOLUME 86.6 fL (81-99); MONOCYTES # (AUTO) 0.7 (0.2-0.8); NEUTROPHILS # (AUTO) 3.3 (2.1-6.9); PLATELET COUNT 181 x10e3/uL (140-360); RED BLOOD COUNT 3.97 x10e6/uL (4.3-5.7); RED CELL DISTRIBUTION WIDTH 14.7 % (11.7-14.4)
[2018-12-01] MEDS: MEROPENEM 500MG/ NS 50ML 50 ML IV SCH ×3 (06:20→22:00)
[2018-12-01 06:42] LABS: ANION GAP 12.1 mmol/L (8-16); BLOOD UREA NITROGEN 18 mg/dL (7-26); BUN/CREATININE RATIO 20 (6-25); CALCIUM 9.6 mg/dL (8.4-10.2); CARBON DIOXIDE 25 mmol/L (22-29); CHLORIDE 104 mmol/L (98-107); CREATININE, SERUM 0.92 mg/dL (0.72-1.25); EST GLOMERULAR FILTRATION RATE > 60 ML/MIN (60-); GLUCOSE 99 mg/dL (74-118); POTASSIUM 4.1 mmol/L (3.5-5.1); SODIUM 137 mmol/L (136-145)
--- NOTE | 2018-12-01 07:28 | NUR ---
PAGED DR. Tr HOPE TO NOTIFY REGARDING CONSULT. STATES PT HAD URINE CULTURE WITH ESBL ON 11/27/[address] MAZA. NOTIFIED CHARGE NURSE AND TECH PT IS CONTACT ISOLATION.
[2018-12-01] MEDS: INSULIN LISPRO 100 UNIT/1 ML 3ML VIAL SQ SCH ×4 (07:30→20:52)
[2018-12-01 08:00] VITALS: BP 131/68
--- NOTE | 2018-12-01 12:05 | Diagnostic Imaging Report ---
EXAM: CT Chest without contrast INDICATION: Abnormal chest radiograph, dizziness. COMPARISON: Chest radiograph 11/30/2018 and 11/03/2018. TECHNIQUE: Chest was scanned utilizing a multidetector helical scanner from the lung apex through the level of the adrenal glands without administration of IV contrast. Coronal and sagittal reformations were obtained. Routine protocol was performed. RADIATION DOSE: Total DLP: 473.1 mGy*cm Dose modulation, iterative reconstruction, and/or weight based adjustment of the mA/kV was utilized to reduce the radiation dose to as low as reasonably achievable. COMPLICATIONS: None FINDINGS: LINES/ TUBES: None. LUNGS AND AIRWAYS: The central airways are patent. No evidence of pneumonia or pulmonary edema. There is a 2 mm solid nodule in the right upper lobe on series 3, image 23. Patchy opacities in the right lower lobe, likely atelectasis. PLEURA: The pleural spaces are clear. HEART AND MEDIASTINUM: The thyroid gland is normal. No mediastinal, hilar or axillary lymphadenopathy. The heart is normal in size.. Trace pericardial effusion. Extensive coronary atherosclerosis. Scattered atherosclerosis within the thoracic aorta and branch vessels. Small hiatal hernia. There are enlarged distal/peripheral pulmonary artery branches in the right lower lobe which appear curvilinear. UPPER ABDOMEN: Limited non-contrast views of the upper abdomen show no abnormality. BONES: Minimal age indeterminate anterior loss of vertebral body height at T8. Diffuse osteopenia. SOFT TISSUES: Unremarkable. IMPRESSION: No evidence of pneumonia. There are enlarged distal/peripheral pulmonary artery branches in the right lower lobe which appear curvilinear. Given the dilation, an abnormal flow pattern is possible, underlying pulmonary AVM is a consideration. In the absence of symptoms, a follow-up chest CTA suggested in 6 months to assess for stability. If the patient is symptomatic, pulmonary CTA may be obtained. A punctate 2 mm solid nodule in the right upper lobe is likely benign and does not require further follow-up, particularly in a low risk patient. If the patient is at high risk for malignancy, an optional chest CT may be considered in 12 months. Minimal age indeterminate anterior loss of vertebral body height at T8. Diffuse osteopenia. Signed by: Dr. Marc Kim MD on 12/01/2018 12:01 PM
[2018-12-01 12:51] VITALS: BP 131/65
[2018-12-01 12:53] VITALS: BP 131/65
[2018-12-01] MEDS ORDERED: PHENAZOPYRIDINE HCL 100 MG TAB PO PRN (13:15)
--- NOTE | 2018-12-01 16:18 | NUR ---
RECD PT FROM [facility] VIA W/C AAOX3,HOB ELEVATED,TRINITY ALEXANDER IN REACH,DAISY
[2018-12-01 16:38] VITALS: BP 118/67
--- NOTE | 2018-12-01 17:33 | NUR ---
CASE MANAGEMENT INITIAL ASSESSMENT General Studies Program Chair to bedside to discuss plan of care with patient/family. CM/SW role and care transitions discussed. Anticipated discharge plan discussed along with duration of care. CM/SW discussed patients right to make decisions in care. CM/SW work hours given. Patient lives: Admit/Transfer: ER Hospital/ER visits since last admit:0 POA/Emergency contact: BHARATHI BEDOLLA [phone] Current/Previous Home Health: NONE PCP/Follow-up Care: DR DI CEBALLOS Current/Previous DME: [employer] Medications (referring to index hospitalization or the first time you were in the hospital) a. Were changes made in your medications when you were in the hospital on [date of index hospitalization]? Yes No Not sure Explain: Note: If no or not sure, please skip to question d b. Did you understand the changes? Yes No Explain: c. Were you able to obtain your new medications right away? Yes No n/a SNF only Explain: d. Were you able to take your medications like the doctor wanted you to? Yes No Explain: e. Did the hospital give you an accurate, easy to understand list of medications when you left? Yes No n/a SNF only Explain: Scale of 1-10 how comfortable does patient feel with disease management in outpatient settin Other Services: NONE Employment Status: DISABILITY Areas of Concerns: NONE Referral Needs: TO BE DETERMINED Education Needs: TO BE DETERMINED IMM/PRAKASH given and signed (if applicable): N/A Goal for discharge:HOME WITH CM/SW left business card at the bedside with contact information. Name and number was also written on the patients whiteboard. Patient verbalized understanding of discussion. CM will follow-up with ongoing discharge and transition of care needs.
--- NOTE | 2018-12-01 18:28 | NUR ---
PT RESTING NO DISTRESS NTOED.
--- NOTE | 2018-12-01 19:10 | NUR ---
Bedside rounds completed with morning nurse. Pt alert to name. Lying in bed HOB 30 degrees. c/o mod temporal headache, will provide pain med relief. Call sanchez within reach. Will continue to monitor.
[2018-12-01 20:00] VITALS: BP 141/73
[2018-12-01] MEDS: ATORVASTATIN 20 MG TAB PO SCH (20:51)
[2018-12-01] MEDS ORDERED: SODIUM CHLORIDE 0.9% 250ML 250 ML ONE (22:29)
[2018-12-02] VITALS (8 sets, daily range): BP systolic 130–142; BP diastolic 69–83
--- NOTE | 2018-12-02 03:58 | Consultation ---
DATE OF CONSULTATION: 12/01/2018 REASON FOR CONSULTATION: UTI. HISTORY OF PRESENT ILLNESS: This patient was seen and examined today. He is a 63-year-old male, who has a history of ureteral stent placed on the right. He has right kidney stone. He has a history of recurrent UTIs. He has a history of urethral strictures. He comes into the hospital because of not feeling well. He has been sick for a week with fever on and off, chills, suprapubic pain, urgency, frequency. He was recently diagnosed with UTI. Apparently, he was multidrug resistant. He was given antibiotic without any improvement. He was on Macrobid, but without any improvement. The patient had an indwelling ureteral stent, which was placed on November 05, 2018. Had cystourethroscopic procedure with dilatation of urethral stricture, ureterostomy, and removal of the right indwelling catheter, but coming with fever and chills and not feeling well. In the emergency room, he was also complaining of shortness of breath and cough. In the emergency room, he had chest x-ray, showed right base tree-in-bud opacity, suspicious for infection. The patient was admitted on November 30 and I was asked to see him today. The patient tells me he is just feeling slightly better, but not any bad. PAST MEDICAL HISTORY: As mentioned above. Recurrent UTIs, urethral stricture, indwelling stent which was removed, diabetes mellitus type 2 on insulin, hypertension, and hyperlipidemia. PAST SURGICAL HISTORY: Stent placement. ALLERGIES: NKA. SOCIAL HISTORY: There is no smoking, drug abuse, or alcohol abuse. FAMILY HISTORY: Hypertension. Apparently, the patient had a urine culture, which was E coli, multidrug resistant. I do not have that here at the present time. REVIEW OF SYSTEMS: At the present time, HEENT: There is no headache, visual changes, or hearing changes. CONSTITUTIONAL: He is still not feeling well. GI: There is no nausea, no vomiting, no diarrhea, but he is still having urgency, frequency. JOINTS: Otherwise negative. All other systems are within normal limit. PHYSICAL EXAMINATION: GENERAL: He is currently alert and oriented, does not seem to be in acute distress. VITAL SIGNS: Stable, afebrile. HEENT: He is not icteric. NECK: Supple. CHEST: Clear. HEART: S1 and S2. No murmurs. ABDOMEN: Soft. Bowel sounds present. No tenderness. EXTREMITIES: No edema. IMPRESSION AND PLAN: 1. History of urinary tract infection with multidrug resistant, history of stent which was just changed, he had extended spectrum beta-lactamase. Dr. Zamorano has the cultures, we will contact him. He is currently on meropenem. For probably in the 14 days of IV antibiotic, we will get a PICC line. We will discuss with Dr. Zamorano. The plan for him to have a TURP on Thursday. We will keep on IV antibiotics throughout. The procedure may need extended treatment. 2. Diabetes mellitus. 3. History of hypertension. 4. We will follow up. MD ESHA Alexander/DC /[id number]
[2018-12-02] MEDS: MEROPENEM 500MG/ NS 50ML 50 ML IV SCH ×3 (06:39→22:55)
[2018-12-02] MEDS: INSULIN LISPRO 100 UNIT/1 ML 3ML VIAL SQ SCH ×4 (07:30→21:00)
--- NOTE | 2018-12-02 07:30 | NUR ---
PT UP ON SIDE OF BED NO DISTRESS NOTED,DENIES PAIN
[2018-12-02] MEDS: MAGNESIUM HYDROXIDE 30 ML UDC PO PRN (09:29)
--- NOTE | 2018-12-02 18:53 | Progress Note ---
DATE: 12/02/2018 SUBJECTIVE: Mr. Darby is feeling better. There are no new complaints. REVIEW OF SYSTEMS: HEENT: Negative. PULMONARY: Negative. CARDIAC: Negative. : Negative. PHYSICAL EXAMINATION: GENERAL: He is currently alert, oriented, does not seem to be in acute distress. VITAL SIGNS: Stable. Currently afebrile. HEENT: Not icteric. NECK: Supple. CHEST: Clear. HEART: S1, S2. No murmur. ABDOMEN: Soft. Bowel sounds present. No tenderness. EXTREMITIES: No edema. IMPRESSION: 1. Urinary tract infection with extended spectrum beta-lactamase, currently on meropenem. The plan is for him to have transurethral resection of the prostate on Thursday. Continue with IV antibiotic for now. Discussed with the patient. A culture was done at the urologist. He will need 2 weeks of IV antibiotic, but with his prostatitis that will extend to 6 weeks. We will discuss with Dr. Zamorano. 2. Prostatitis with extended spectrum beta-lactamase, 6 weeks of IV meropenem. MD ESHA Alexander/DC /[id number]
--- NOTE | 2018-12-02 19:10 | NUR ---
Bedside rounds completed with morning nurse. Pt alert to name. Pt sitting on couch in room. Denies pain at this time. Call sanchez within reach. Will continue to monitor.
[2018-12-02] MEDS: ATORVASTATIN 20 MG TAB PO SCH (21:00)
[2018-12-02] MEDS: ZOLPIDEM TARTRATE 10 MG TAB PO SCH (22:55)
[2018-12-02] MEDS: ACETAMINOPHEN 325 MG TAB PO PRN (22:55)
[2018-12-03] VITALS (8 sets, daily range): BP systolic 131–150; BP diastolic 64–81
[2018-12-03] MEDS: MEROPENEM 500MG/ NS 50ML 50 ML IV SCH ×3 (06:00→22:04)
--- NOTE | 2018-12-03 07:08 | NUR ---
RECEIVED PATIENT RESTING IN BED. NO ACUTE DISTRESS NOTED. PATIENT DENIES PAIN OR DISCOMFORT. CALL LIGHT WITHIN REACH. BED IN THE LOWEST POSITION.
[2018-12-03] MEDS: INSULIN LISPRO 100 UNIT/1 ML 3ML VIAL SQ SCH ×4 (07:30→21:28)
--- NOTE | 2018-12-03 10:49 | NUR ---
EDUCATED ABOUT IMM, SIGNED, FILED IN CHART, WITH COPY LEFT WITH FAMILY AT BEDSIDE.
--- NOTE | 2018-12-03 12:35 | NUR ---
ASSESSMENT: Spiritual distress Pt requested car audio installer visit. Pt lonely and sad. Pt's son at bedside. Pt states his , daughter and a different son who doesn't visit him in the hospital. Pt states he doesn't get many visitors and wants to go home. Pt states he is "depressed" and "can't remember things." Pt states he will "probably stay until Thursday." Intervention: Provided hospitality and unhurried empathic listening. Facilitated illness review. Outcome: Pt & son expressed appreciation for visit. Will follow as able. CLAIRE PALMER Cashier Greeter Spiritual Care Department O: [phone] Pager: [phone] ([phone] number calling from)
--- NOTE | 2018-12-03 19:08 | NUR ---
REPORT GIVEN TO ONCOMING NURSE, PATIENT IS RESTING COUCH. NO ACUTE DISTRESS NOTED. CALL LIGHT WITHIN REACH.
[2018-12-03] MEDS: ATORVASTATIN 20 MG TAB PO SCH (22:04)
[2018-12-03] MEDS: ACETAMINOPHEN 325 MG TAB PO PRN (22:04)
[2018-12-03] MEDS: ZOLPIDEM TARTRATE 10 MG TAB PO SCH (22:04)
[2018-12-04] VITALS (7 sets, daily range): BP systolic 120–159; BP diastolic 66–84
[2018-12-04] MEDS: MEROPENEM 500MG/ NS 50ML 50 ML IV SCH ×3 (05:27→21:49)
--- NOTE | 2018-12-04 07:11 | NUR ---
RECEIVED PATIENT RESTING IN BED. NO ACUTE DISTRESS NOTED. CALL LIGHT WITHIN REACH. BED IN THE LOWEST POSITION.
[2018-12-04] MEDS: INSULIN LISPRO 100 UNIT/1 ML 3ML VIAL SQ SCH ×4 (08:30→21:00)
--- NOTE | 2018-12-04 19:08 | NUR ---
REPORT GIVEN TO ONCOMING NURSE, PATIENT IS RESTING IN BED. RESPIRATIONS EVEN AND UNLABORED. NO ACUTE DISTRESS NOTED. CALL LIGHT WITHIN REACH. BED IN THE LOWEST POSITION.
[2018-12-04] MEDS: ZOLPIDEM TARTRATE 10 MG TAB PO SCH ×2 (21:00→22:00)
[2018-12-04] MEDS: ATORVASTATIN 20 MG TAB PO SCH (21:48)
[2018-12-04] MEDS: ACETAMINOPHEN 325 MG TAB PO PRN (22:13)
[2018-12-05] VITALS (8 sets, daily range): BP systolic 105–159; BP diastolic 60–83
--- NOTE | 2018-12-05 04:42 | NUR ---
Patient laying in bed with HOB slightly elevated. No distress noted. No SOB noted. Patient in stable condition. Will continue to monitor.
[2018-12-05] MEDS: MEROPENEM 500MG/ NS 50ML 50 ML IV SCH ×3 (05:56→20:59)
--- NOTE | 2018-12-05 06:48 | NUR ---
RECEIVED PATIENT RESTING IN BED. RESPIRATIONS EVEN AND UNLABORED. NO ACUTE DISTRESS NOTED. CALL LIGHT WITHIN REACH. BED IN THE LOWEST POSITION.
[2018-12-05 07:05] LABS: BASOPHILS % 0.3 % (0.0-1.0); EOSINOPHILS # (AUTO) 0.1 (0.0-0.4); EOSINOPHILS % 2.3 % (0.0-6.0); HEMATOCRIT 38.6 % (38.2-49.6); HEMOGLOBIN 13.2 g/dL (14.0-18.0); LYMPHOCYTES # (AUTO) 2.7 (1.0-3.2); LYMPHOCYTES % 44.2 % (18.0-39.1); MEAN CORPUSCULAR HEMOGLOBIN 28.8 pg (28-32); MEAN CORPUSCULAR HGB CONC 34.2 g/dL (31-35); MEAN CORPUSCULAR VOLUME 84.1 fL (81-99); MONOCYTES # (AUTO) 0.4 (0.2-0.8); MONOCYTES % 7.3 % (4.4-11.3); NEUTROPHILS # (AUTO) 2.7 (2.1-6.9); NEUTROPHILS % 45.7 % (38.7-80.0); PLATELET COUNT 204 x10e3/uL (140-360); RED BLOOD COUNT 4.59 x10e6/uL (4.3-5.7); RED CELL DISTRIBUTION WIDTH 14.4 % (11.7-14.4)
[2018-12-05 07:26] LABS: ANION GAP 12.9 mmol/L (8-16); BLOOD UREA NITROGEN 15 mg/dL (7-26); BUN/CREATININE RATIO 18 (6-25); CALCIUM 9.4 mg/dL (8.4-10.2); CARBON DIOXIDE 22 mmol/L (22-29); CHLORIDE 105 mmol/L (98-107); CREATININE, SERUM 0.84 mg/dL (0.72-1.25); EST GLOMERULAR FILTRATION RATE > 60 ML/MIN (60-); GLUCOSE 123 mg/dL (74-118); POTASSIUM 3.9 mmol/L (3.5-5.1); SODIUM 136 mmol/L (136-145)
[2018-12-05] MEDS: INSULIN LISPRO 100 UNIT/1 ML 3ML VIAL SQ SCH ×4 (07:30→20:59)
[2018-12-05] MEDS ORDERED: SODIUM CHLORIDE 0.9% 250ML 250 ML ONE (14:18)
--- NOTE | 2018-12-05 15:15 | NUR ---
Visit made by the Spiritual Care Department Pastoral Visitor, Issa Carpenter. PV provided pastoral presence, hospitality, and supportive listening. Pastoral Visitor informed pt/family of the scope of Fire Truck [employer] Services and availability. CLAIRE PALMER Dish Carrier Spiritual Care Department O: [phone] Pager: [phone] ([phone] number calling from)
--- NOTE | 2018-12-05 18:32 | NUR ---
PATIENT C/O BURNING ON URINATION AND STATES HE FEELS LIKE THERE IS SOMETHING IN HIS PENIS THAT STOPS THE URINE RIGHT BEFORE COMING OUT. PATIENT HAS BEEN VOIDING FINE ALL DAY. NOTIFIED DR. HOPE, WAITING ON ANSWER.
--- NOTE | 2018-12-05 18:37 | NUR ---
NEW ORDERS RECEIVED FROM DR. HOPE.
--- NOTE | 2018-12-05 19:04 | NUR ---
REPORT GIVEN TO ONCOMING NURSE. PATIENT IS SITTING UP IN CHAIR, NO ACUTE DISTRESS NOTED. CALL LIGHT WITHIN REACH. BED IN THE LOWEST POSITION.
--- NOTE | 2018-12-05 19:21 | NUR ---
PT IS RESTING IN BED. NO RESPIRATORY DISTRESS NOTED. BED IN THE LOWEST POSITION, LOCKED, AND CALL LIGHT WITHIN REACH. WILL CONTINUE TO MONITOR.
[2018-12-05] MEDS: PHENAZOPYRIDINE HCL 100 MG TAB PO SCH (20:57)
[2018-12-05] MEDS: ATORVASTATIN 20 MG TAB PO SCH (20:57)
[2018-12-05] MEDS: TEMAZEPAM 15 MG CAP PO SCH (20:57)
[2018-12-05] MEDS: ACETAMINOPHEN 325 MG TAB PO PRN (21:40)
[2018-12-06] VITALS: BP 137/88
[2018-12-06 04:00] VITALS: BP 125/77
[2018-12-06] MEDS: MEROPENEM 500MG/ NS 50ML 50 ML IV SCH ×3 (06:02→22:58)
--- NOTE | 2018-12-06 06:33 | NUR ---
PT OFF THE FLOOR FOR HIS PROCEDURE.
[2018-12-06] MEDS ORDERED: BELLADONNA/OPIUM 60 MG SUPP PR ONE (06:44)
[2018-12-06] MEDS ORDERED: IOPAMIDOL 610MG/1ML 300 MG/ML VIAL IV ONE (06:45)
[2018-12-06] MEDS: INSULIN LISPRO 100 UNIT/1 ML 3ML VIAL SQ SCH ×4 (07:30→23:05)
[2018-12-06 08:00] VITALS: BP 175/77
--- NOTE | 2018-12-06 09:00 | NUR ---
Received pt from recovery at this time. Pt is aox3 and able to verbalize needs. PT complaining of pain to tip of penis. Breaths are even and unlabored. Pt has continuous bladder irrigation with yellow urine with some blood clots noted.
[2018-12-06] MEDS: PHENAZOPYRIDINE HCL 100 MG TAB PO SCH ×3 (09:12→20:55)
[2018-12-06] MEDS: DOCUSATE SODIUM 100 MG CAP PO SCH ×2 (09:12→17:11)
[2018-12-06] MEDS: ACETAMINOPHEN/CODEINE 300MG - 30MG TAB PO PRN ×3 (09:12→20:56)
--- NOTE | 2018-12-06 09:48 | NUR ---
Pt states he is in pain following procedure and doesn't feel like a visit. Will continue to follow as able. CLAIRE PALMER Ambulatory Care Coordinator Spiritual Care Department O: [phone] Pager: [phone] ([phone] number calling from)
--- NOTE | 2018-12-06 09:48 | NUR ---
EDUCATED ABOUT IMM, SIGNED, FILED IN CHART, WITH COPY LEFT WITH FAMILY AT BEDSIDE.
[2018-12-06 12:50] VITALS: BP 167/85
--- NOTE | 2018-12-06 15:00 | NUR ---
CM TO BEDSIDE TO DISCUSS IMM AND OBTAIN SIGNATURE. PATIENT VERBALIZED UNDERSTANDING OF DISCUSSION. COPY OF IMM TO CHART AND COPY PLACED IN CARE TRANSITION FOLDER.
[2018-12-06 15:57] VITALS: BP 144/74
[2018-12-06] MEDS ORDERED: LIDOCAINE HCL 2% LOCAL INJ 5 ML SDV VIAL INJ ONE (19:23)
[2018-12-06] MEDS ORDERED: LABETALOL HCL 5 MG/ML 20ML VIAL ONE (19:23)
[2018-12-06] MEDS ORDERED: SEVOFLURANE INHAL SOLN 250 ML PEN BTL ONE (19:23)
[2018-12-06] MEDS ORDERED: DEXAMETHASONE SOD PHOS INJ 4 MG/ML VIAL ONE (19:23)
[2018-12-06] MEDS ORDERED: PROPOFOL IV EMULSION 10 MG/ML 20 ML VIAL ONE (19:23)
[2018-12-06] MEDS ORDERED: EPHEDRINE SULFATE INJ 50 MG/10 ML SYR ONE (19:23)
[2018-12-06] MEDS ORDERED: ONDANSETRON HCL INJ 2MG/ML 2ML 2 MG/ML VIAL ONE (19:23)
[2018-12-06] MEDS ORDERED: MORPHINE SULFATE INJ 10 MG/ML ONE (19:29)
[2018-12-06] MEDS ORDERED: MIDAZOLAM HCL 2 MG/2 ML VIAL ONE (19:29)
[2018-12-06] MEDS ORDERED: FENTANYL CITRATE/PF 100MCG/2 ML INJ ONE (19:29)
--- NOTE | 2018-12-06 19:32 | NUR ---
RECEIVED PT N BED AOX3 . RESPIRATIONS ARE EVEN AND UNLABORED .SKIN WARM AND DRY TO TOUCH . PT IS ON CONTINUOUS BLADDER IRRIGATION .DENIES PAIN FAMILY AT THE BEDSIDE .CALL LIGHT WITH IN REACH .CONTINUE TO MONITOR
[2018-12-06 20:00] VITALS: BP 142/77
[2018-12-06] MEDS: ATORVASTATIN 20 MG TAB PO SCH (20:55)
[2018-12-06] MEDS: TEMAZEPAM 15 MG CAP PO SCH (20:55)
--- NOTE | 2018-12-06 20:58 | NUR ---
Nutrition Screen Note RD Recommendation for Physician: -Rec ADA diet as medically appropriate -Rec Glucerna once a day per pt request Plan of Care: RD following, monitoring for tolerance and adequacy Nutrition reason for involvement: LOS Primary Diagnose(s): UTI, prostate infection PMH: Prostate infection, urinary tract infection recurrent, ureteral strictures, history of right ureteral indwelling stent that was removed, diabetes type 2 on insulin therapy, hypertension, dyslipidemia. Ht: 67in Wt: 171lb BMI: 26.8kg/m2 IBW: 148lb RD Assessment: (12/06) Chart reviewed. Labs and meds reviewed. 63yo M, who was admitted for weakness. S/p TURP on 12/06 and on abx. Negative occult stool. Visited pt in the room. Pt reported good appetite until after surgery today. No GI complains noted. LBM 12/06. No chewing or swallowing difficulty noted. No recent weight loss reported. Pt requested for supplements. Will continue to monitor and follow. Current Diet: regular diet Malnutrition Evaluation (12/06) The patient does not meet criteria for a specified degree of malnutrition at this time. Will re-evaluate at follow-up as appropriate. Diet Education Needs Assessment: Diet education not indicated. Nutrition Care Level: low Signed: Doris Mccurdy, MS, RD, LD
[2018-12-07] VITALS (9 sets, daily range): BP systolic 118–157; BP diastolic 69–87
[2018-12-07] MEDS: BELLADONNA/OPIUM 30 MG SUPP RC PRN ×4 (00:41→21:39)
[2018-12-07] MEDS: ACETAMINOPHEN/CODEINE 300MG - 30MG TAB PO PRN ×2 (01:51→05:51)
--- NOTE | 2018-12-07 06:14 | NUR ---
PT C/O PAIN ALL NIGHT AND GIVEN TYLENOL#3 AND BELLADONNA.IRRIGATED WIT [id number] ML NS AND FLUSHED THE F/C X3 .PT RESTING .CALL LIGHT WITH IN REACH .CONTINUE TO MONITOR
[2018-12-07] MEDS: MEROPENEM 500MG/ NS 50ML 50 ML IV SCH ×2 (06:29→14:04)
--- NOTE | 2018-12-07 07:13 | NUR ---
REPORT GIVEN TO THE ONCOMING NURSE FOR CONTINUING CARE
--- NOTE | 2018-12-07 08:30 | NUR ---
Received order from Dr. Zamorano to take pt of isolation because pt urine micro came back negative. Dr. Zamorano also gave orders to transfer pt to [facility] because pt is clean and wants him in a clean unit. parachute supervisor made aware and was told he will get moved as soon as room becomes available.
[2018-12-07] MEDS: PHENAZOPYRIDINE HCL 100 MG TAB PO SCH ×3 (08:48→21:02)
[2018-12-07] MEDS: DOCUSATE SODIUM 100 MG CAP PO SCH ×2 (08:48→17:12)
[2018-12-07] MEDS: MAGNESIUM HYDROXIDE 30 ML UDC PO PRN (08:52)
[2018-12-07] MEDS: INSULIN LISPRO 100 UNIT/1 ML 3ML VIAL SQ SCH ×5 (08:53→22:46)
[2018-12-07 12:47] LABS: PROTHROMBIN TIME 13.7 seconds (11.9-14.5)
[2018-12-07 12:48] LABS: PARTIAL THROMBOPLASTIN TIME 29.2 seconds (23.8-35.5)
[2018-12-07 12:55] LABS: ANION GAP 13.8 mmol/L (8-16); BLOOD UREA NITROGEN 18 mg/dL (7-26); BUN/CREATININE RATIO 19 (6-25); CALCIUM 9.6 mg/dL (8.4-10.2); CARBON DIOXIDE 24 mmol/L (22-29); CHLORIDE 98 mmol/L (98-107); CREATININE, SERUM 0.93 mg/dL (0.72-1.25); EST GLOMERULAR FILTRATION RATE > 60 ML/MIN (60-); GLUCOSE 184 mg/dL (74-118); POTASSIUM 3.8 mmol/L (3.5-5.1); SODIUM 132 mmol/L (136-145)
--- NOTE | 2018-12-07 15:14 | Diagnostic Imaging Report ---
A single frontal view of the chest. HISTORY: PICC line verification COMPARISON: Chest radiograph November 30, 2018 DISCUSSION: Portable technique, limits sensitivity of the exam. Soft tissue attenuation partially limits sensitivity of the exam. Tubes/Lines: Right upper extremity PICC line, the tip projects in the region of the distal superior vena cava. Lungs and pleura: The lungs are well inflated. No evidence of a consolidative pneumonia or pulmonary alveolar edema. No definite pleural effusion or pneumothorax is identified. Heart and mediastinum: The cardiomediastinal silhouette appears unremarkable. Bones and soft tissues: Appear unremarkable, given this limited exam. IMPRESSION: 1. No acute radiographic abnormality. 2. Status post right upper PICC line placement. Signed by: Dr. Ishan Salmon D.O., M.M.M. on 12/07/2018 3:11 PM
--- NOTE | 2018-12-07 15:43 | NUR ---
REC'D ORDERS FOR HOME IV ABX AND ANDRES CARE AT HOME BI[employer] INFUSION IN NETWORK WITH AMJOSEPHAGE CHOICE LETTER SIGNED AND ON CHART PICC LINE PLACED TODAY COPY OF CHOICE LETTER GIVEN TO PT IN CARE TRANSITIONS FOLDER CALLED AND SPOKE WITH MARK KATZ AT [employer] [phone]; NOTIFIED OF REFERRAL AND POSS DC TOMORROW FAXED CLINICALS TO [phone] CONFIRMATION REC'D
--- NOTE | 2018-12-07 15:50 | NUR ---
Visit made by the Spiritual Care Department Pastoral Visitor, Suni Richey. Pt sleeping soundly and no family present. Pastoral Visitor left a card describing availability of kiln firer and instructions on how to contact a kiln firer. CLAIRE PALMER It Sales Executive Spiritual Care Department O: [phone] Pager: [phone] ([phone] number calling from)
--- NOTE | 2018-12-07 18:32 | NUR ---
Checked with house manager and charge nurse and room has not become available in [facility] yet so pt not able to transfer at this time.
--- NOTE | 2018-12-07 19:47 | NUR ---
RECEIVED PT IN THE ROOM WALKING IN THE ROOM AND DENIES PAIN .PT IS ON CONTINUOUS IRRIGATION .PT IS GOING TO TRANSFER TO [facility] .AND REPORT GIVEN THE THE NURSE
--- NOTE | 2018-12-07 20:16 | NUR ---
PT IS TRANSFERRED TO [facility] .
[2018-12-07] MEDS: ATORVASTATIN 20 MG TAB PO SCH (21:02)
[2018-12-07] MEDS: TEMAZEPAM 15 MG CAP PO SCH (21:02)
[2018-12-07] MEDS: ACETAMINOPHEN 325 MG TAB PO PRN (21:40)
[2018-12-08] VITALS (8 sets, daily range): BP systolic 106–146; BP diastolic 59–80
[2018-12-08] MEDS: ACETAMINOPHEN/CODEINE 300MG - 30MG TAB PO PRN (03:36)
--- NOTE | 2018-12-08 07:20 | NUR ---
Received patient and walking rounds complete. Patient awake, no signs of distress at this time. Call light in reach, will continue to monitor.
[2018-12-08] MEDS: PHENAZOPYRIDINE HCL 100 MG TAB PO SCH ×3 (08:27→21:54)
[2018-12-08] MEDS: DOCUSATE SODIUM 100 MG CAP PO SCH ×2 (08:27→16:34)
[2018-12-08] MEDS: INSULIN LISPRO 100 UNIT/1 ML 3ML VIAL SQ SCH ×4 (09:12→21:10)
[2018-12-08] MEDS: ACETAMINOPHEN 325 MG TAB PO PRN ×3 (09:17→23:10)
--- NOTE | 2018-12-08 10:00 | NUR ---
Patient A/O X3, even respirations on RA. Bowel sounds active, skin intact, no edema. Mixon in place with CBI. Urine clear/genny at this time. PICC line in place. Patient is ambulatory. No signs of distress at this time, call light in reach, will continue to monitor.
--- NOTE | 2018-12-08 10:05 | NUR ---
Notified Dr. Cota regarding Merrem medication reaching stop date. Telephone order to continue Merrem.
--- NOTE | 2018-12-08 10:31 | NUR ---
Franny jimenez/ [employer] [phone] called to state she has received all clinical and has spoke to pt regarding his copay and he has agreed to pay. She states he wants her to come to hospital today at 5pm to teach his daughter, and she will be here then unless told otherwise by CM. PICC insertion report faxed to her now as requested to [phone]. She states they will set up home health as well per CM request.
--- NOTE | 2018-12-08 12:40 | NUR ---
Removed Mixon catheter. Catheter tip intact on removal. Will start serial urines per MD order.
--- NOTE | 2018-12-08 12:55 | NUR ---
ASSESSMENT: Spiritual concern Pt anxiously awaits discharge. Pt hopeful to be discharged today. Pt states he is preparing to go home. Intervention: Provided empathic listening. Facilitated illness review. Outcome: Pt expressed appreciation for visit. CLAIRE PALMER Replenishment Merchandising Associate Spiritual Care Department O: [phone] Pager: [phone] ([phone] number calling from)
[2018-12-08] MEDS ORDERED: MEROPENEM 500MG/ NS 50ML 500 MG in MEROPENEM 500MG/ NS 50ML 50 ML IV SCH (14:00)
--- NOTE | 2018-12-08 14:00 | NUR ---
Patient has voided since Mixon removal.
[2018-12-08] MEDS ORDERED: SODIUM CHLORIDE 0.9% 250ML 250 ML ONE (14:40)
--- NOTE | 2018-12-08 14:55 | NUR ---
Met with patient and explained IMM letter. Verbalized understanding and signed letter. Copy to patient's Transition of Care folder and original placed in chart
[2018-12-08] MEDS: BELLADONNA/OPIUM 30 MG SUPP RC PRN (17:44)
--- NOTE | 2018-12-08 18:06 | NUR ---
Paged Dr. Zamorano regarding hematuria, waiting for call back at this time.
--- NOTE | 2018-12-08 18:18 | NUR ---
Spoke with Dr. Zamornao regarding hematuria. Dr. Zamorano said to continue serial urines at this time. Patient will stay over night.
--- NOTE | 2018-12-08 19:10 | NUR ---
REPORT TAKEN FROM AM RN.WALKING ROUNDS DONE.LYEING QUIETLY IN THE BED.
--- NOTE | 2018-12-08 21:00 | NUR ---
COLLECTING SERIES OF URINE.NO BLOOD CLOTS NOTED.AAOX3.ASSESSMENT DONE.NO RESP.DISTRESS.BED LOCKED AND IN LOWEST POSITION.PHONE AND CALL LIGHT WITHIN REACH.INSTRUCTED TO CALL FOR ASSISTANCE NEEDED.
[2018-12-08] MEDS: ATORVASTATIN 20 MG TAB PO SCH (21:54)
[2018-12-08] MEDS: TEMAZEPAM 15 MG CAP PO SCH (21:54)
[2018-12-08] MEDS: MEROPENEM 500MG/ NS 50ML 50 ML IV SCH (21:56)
[2018-12-09 00:46] VITALS: BP 100/61
[2018-12-09 04:00] VITALS: BP 131/63
--- NOTE | 2018-12-09 05:30 | NUR ---
C/O DIZINESS AND DISCOMFORT.BLOOD SUGAR CHECKED AND NOTED 155.BP 131/63 MMOF HG.PAIN MEDICINE GIVEN.
[2018-12-09] MEDS: MEROPENEM 500MG/ NS 50ML 50 ML IV SCH ×2 (05:38→14:08)
[2018-12-09] MEDS: BELLADONNA/OPIUM 30 MG SUPP RC PRN (05:38)
--- NOTE | 2018-12-09 06:51 | NUR ---
REPORT GIVEN TO THE ONCOMING RN.WALKING ROUNDS DONE.STABLE CONDITION.
--- NOTE | 2018-12-09 07:11 | NUR ---
Received patient and walking rounds complete. Patient awake at this time, no signs of distress. Call light in reach, will continue to monitor.
[2018-12-09] MEDS ORDERED: BISACODYL 10 MG SUPP PR STA (07:51)
[2018-12-09 07:59] VITALS: BP 129/65
[2018-12-09] MEDS ORDERED: BISACODYL 10 MG SUPP PR PRN (08:00)
[2018-12-09] MEDS: DOCUSATE SODIUM 100 MG CAP PO SCH ×2 (08:32→16:13)
[2018-12-09] MEDS: PHENAZOPYRIDINE HCL 100 MG TAB PO SCH ×2 (08:32→14:08)
[2018-12-09] MEDS: INSULIN LISPRO 100 UNIT/1 ML 3ML VIAL SQ SCH ×3 (08:33→16:14)
--- NOTE | 2018-12-09 08:33 | NUR ---
SERGO SPOKE TO GAUTAM ATKINS REGARDING PATIENT NOT DISCHARGING LAST NIGHT. PER RN PATIENT PASSED LARGE BLOOD CLOT IN [place] AND SPOKE TO DR. WEBSTER. PER MD PATIENT TO STAY OVER NIGHT FOR MONITORING. DR. WEBSTER TO SEE PATIENT AND LET URINE CLEAR TODAY. ANTICIPATED D/C IS LATER TODAY.
[2018-12-09 08:43] VITALS: BP 129/65
--- NOTE | 2018-12-09 09:30 | NUR ---
Patient A/O X3, even respirations on RA. Bowel sounds active, skin intact, no edema. Patient is ambulatory. Serial urines being collected, hematuria at this time, no blood clots. Right PICC line in place. No complaint of pain or discomfort at this time. Call light in reach, will continue to monitor.
[2018-12-09 12:14] VITALS: BP 122/74
[2018-12-09] MEDS: MAGNESIUM HYDROXIDE 30 ML UDC PO PRN (13:03)
--- NOTE | 2018-12-09 15:06 | NUR ---
Changed PICC line dressing. Sterile dressing change performed.
[2018-12-09 15:55] VITALS: BP 136/67
[2018-12-09] MEDS ORDERED: COLACE100 MG PO (17:24)
[2018-12-09] MEDS ORDERED: PYRIDIUM100 MG PO (17:25)
[2018-12-09] MEDS ORDERED: TYLENOL WITH C1 EACH PO (17:25)
--- NOTE | 2018-12-09 18:24 | NUR ---
Patient discharged from facility. Patient gathered all personal belongings, discharge information, follow up information, and prescriptions. Patient left unit in wheelchair and went home via wheelchair. No signs of distress when leaving facility.
--- NOTE | 2019-01-12 07:17 | Operative Report ---
DATE OF PROCEDURE: 12/06/2018 SURGEON: Catracho Zamorano MD PREOPERATIVE DIAGNOSIS: Obstructive benign prostatic hyperplasia. POSTOPERATIVE DIAGNOSES: 1. Obstructive benign prostatic hyperplasia. 2. Urethral stricture disease. OPERATIONS PERFORMED: 1. Cystourethroscopy with calibration and dilation of distal urethral stricture (separate procedure performed for diagnosis of stricture). 2. Cystourethroscopy with transurethral resection of prostate utilizing a plasma button electrode (separate staged procedure performed for the obstructive BPH). ANESTHESIA: General. COMPLICATIONS: None. CLINICAL SUMMARY: Carlton Darby is a complicated 63-year-old man, who underwent previous cystoscopic procedures. The patient has been treated for urinary tract infection and is ready to proceed with the surgery as planned. He is aware of the risks of bleeding, infection, injury to adjacent structures, incontinence, impotence, need for additional procedures, and elected to proceed. OPERATIVE PROCEDURE IN DETAIL: Informed consent was verified. Carlton Darby was properly identified, taken to the operating room, placed on the cystoscopy table in supine position. Anesthesia was uneventfully begun. The patient was then carefully gently repositioned in dorsal lithotomy position with all pressure points well padded. His genitalia were prepared and draped in usual sterile fashion. A 22.5-Kosovan cystoscope sheath with obturator in place could not be easily placed past the fossa navicularis. The fossa navicularis was then calibrated to approximately 16-Kosovan in size and progressively dilated to 30-Kosovan in size. The sound was held in place for several moments in order to allow for the dilation to hopefully last longer. The resectoscope sheath was then easily placed into the patient's urethra past the stricture and atraumatically inserted in the patient's bladder. The resectoscope was then utilized with the plasma button electrode. Panendoscopy of the bladder revealed trabeculations, but no tumors, no stones, and no diverticula for the prostate exhibited trilobar prostatic hypertrophy with median lobe with intravesical and visually obstructing BPH with kissing lateral lobes. We proceeded to vaporize the prostate from the bladder neck to the verumontanum and down the surgical capsule throughout. First, we limited the median lobe and then we proceeded on working on lateral lobes. There were prostatic stones that were released consistent with chronic prostatitis. Once we vaporized down the surgical capsule, pinpoint electrocautery was utilized to achieve hemostasis. The resectoscope was then withdrawn. The Mixon catheter was placed and it was placed on continuous irrigation. The patient was uneventfully reversed from anesthesia and taken to recovery room in stable condition following placement of a belladonna and opium suppository. There were no complications during the procedure. The patient tolerated the procedure well. Estimated blood loss was minimal. We will proceed with routine postoperative care and of course ongoing urological followup. Catracho MD KRISHNA Zamorano/DC /[id number] cc: Jenny Chacon
== END 2018-12-09 18:23 | disposition home or self-care (01) | DRG 713 ==
LOC: ER 13:53 → ERHOLD 19:46 → MED/SURG 22:32 → MED/SURG3 12-01 16:23 → MED/SURG 12-07 20:24
PROVIDERS: ADMIT Internal Medicine; ATTEND Internal Medicine
PROC: 0V508ZZ Destruction of Prostate, Via Natural or Artificial Opening Endoscopic (ICD-10-PCS; 2018-12-06)
PROC: 0T7D8ZZ Dilation of Urethra, Via Natural or Artificial Opening Endoscopic (ICD-10-PCS; 2018-12-06)
PROC: 02HV33Z Insertion of Infusion Device into Superior Vena Cava, Percutaneous Approach (ICD-10-PCS; principal; 2018-12-07)
DX: N41.9 Inflammatory disease of prostate, unspecified (principal); J18.9 Pneumonia, unspecified organism; N39.0 Urinary tract infection, site not specified; N40.0 Benign prostatic hyperplasia without lower urinary tract symptoms; I10 Essential (primary) hypertension; B96.20 Unspecified Escherichia coli [E. coli] as the cause of diseases classified elsewhere; Z16.12 Extended spectrum beta lactamase (ESBL) resistance; D64.9 Anemia, unspecified; E11.65 Type 2 diabetes mellitus with hyperglycemia; R39.89 Other symptoms and signs involving the genitourinary system; Z87.440 Personal history of urinary (tract) infections; N20.0 Calculus of kidney; Z87.891 Personal history of nicotine dependence
CPT/HCPCS: 36415; 36569; 70450; 71045; 71250; 80048; 80053; 81001; 82270; 82550; 82553; 82948; 83036; 83735; 84484; 85025; 85610; 85730; 87086; 87186; 93005; 99284; J1100; J2001; J2250; J2270; J2405; J7050

== ENCOUNTER 2018-12-30 11:16 | Emergency (ER) | payer MEDICARE ==
[~2018-12-30] VITALS: Ht 170.2 cm; Wt 78.5 kg
[~2018-12-30 11:16] MED LIST changes: +COLACE100 MG PO; +PYRIDIUM100 MG PO; +TYLENOL WITH C1 EACH PO
--- OUTSIDE RECORDS SUMMARY | 2018-12-30 11:19 | XMS REPORT | Clinical Summary ---
Author Author [facility] Organization [facility] Address Unknown Phone Unavailable Care Team Providers Care Gearcase Assembler Name Role Phone Jenny Chacon MD PCP [...] Acute UTI 07/20/2018 Emergency Emergency Medicine after 12/29/2017 Social History Date Tobacco Use Types Packs/Day [...] Taken Vital Sign Reading 07/20/2018 9:14 PM COLLECTIONS ANALYST Blood Pressure 149/70 07/20/2018 9:14 PM COLLECTIONS ANALYST Pulse 63 07/20/2018 9:14 PM COLLECTIONS ANALYST Temperature 36.2 C (97.2 F) 07/20/2018 9:14 PM COLLECTIONS ANALYST Respiratory Rate 20 07/20/2018 9:14 PM COLLECTIONS ANALYST Oxygen Saturation 99% - Inhaled Oxygen - Concentration 07/20/2018 9:14 PM COLLECTIONS ANALYST Weight 83.9 kg (185 lb) 07/20/2018 9:14 PM COLLECTIONS ANALYST Height 170.2 cm (5' 7") 07/20/2018 9:14 PM COLLECTIONS ANALYST Body Mass Index 28.98 Plan of Treatment Health Maintenance Due Date Last Done Comments COLON CANCER SCREENING 2003 SHINGLES VACCINES (#1) 2003 65+ PNEUMOCOCCAL VACCINE 2018 (1 of 2 - PCV13) PNEUMOCOCCAL 2018 POLYSACCHARIDE VACCINE AGE 65 AND OVER INFLUENZA VACCINE 04/14/2019 Procedures Comments Procedure Name Priority Date/Time Associated Diagnosis URINALYSIS STAT 07/20/2018 10:00 PM COLLECTIONS ANALYST GRAM STAIN Routine 07/20/2018 10:00 PM COLLECTIONS ANALYST URINE CULTURE Routine 07/20/2018 10:00 PM COLLECTIONS ANALYST MANUAL DIFFERENTIAL STAT 07/20/2018 9:35 PM COLLECTIONS ANALYST ESTIMATED GFR STAT 07/20/2018 9:35 PM COLLECTIONS ANALYST COMPREHENSIVE METABOLIC STAT 07/20/2018 PANEL 9:35 PM COLLECTIONS ANALYST CBC WITH PLATELET AND STAT 07/20/2018 DIFFERENTIAL 9:[address] STROKE BRAIN WO STAT 07/20/2018 CONTRAST 9:31 PM COLLECTIONS ANALYST after 12/29/2017 Results * Urinalysis (07/20/2018 10:00 PM COLLECTIONS ANALYST) Glucose, UA Negative Negative [facility] Bilirubin, UA Negative Negative [facility] Ketones, UA Negative Negative [facility] Specific gravity, UA 1.010 1.001 - 1.035 [facility] Blood, UA Trace (A) Negative [facility] pH, UA 7.0 5.0 - 8.5 [facility] Protein, UA Negative Negative [facility] Urobilinogen, UA <2.0 <2.0 [facility] Nitrite, UA Negative Negative [facility] Leukocyte esterase, UA Large (A) Negative [facility] Color, UA Yellow [facility] Appearance, UA Clear [facility] Specimen Urine Performing Organization Address City/State/Zipcode Phone Number [address], [place] [address] PATHOLOGY AND GENOMIC 140 MEDICINE, [facility] * Gram stain (07/20/2018 10:00 PM COLLECTIONS ANALYST) Gram stain result Occasional WBC's [facility] DEPARTMENT OF No organisms seen PATHOLOGY AND Comment: GENOMIC MEDICINE Specimen Information Specimen Source: Urine Specimen Site: Urine, clean catch Specimen Urine - Urine, clean catch Performing Organization Address City/State/Zipcode Phone Number [facility] DEPARTMENT OF [address] [place] [address] PATHOLOGY AND GENOMIC MEDICINE * Urine culture (07/20/2018 10:00 PM COLLECTIONS ANALYST) Urine culture isolate Escherichia coli [facility] DEPARTMENT OF 10-4 cfu/ml PATHOLOGY AND This isolate is a broadcast producer of GENOMIC MEDICINE ESBL (extended spectrum [...] coli Performing Organization Address City/State/Zipcode Phone Number [facility] DEPARTMENT [address] [address] PATHOLOGY AND GENOMIC MEDICINE * Estimated GFR (07/20/2018 9:35 PM COLLECTIONS ANALYST) Estimated GFR >=90 mL/min/1.73 m2 DEPARTMENT OF Comment: PATHOLOGY AND [employer] GENOMIC MEDICINE, rpretation [place] [address] [facility] >=90 Normal or high G2 60-89Mildly decreased [id number] Mildly to moderately decreased [id number] Moderately to severely decreased G4 15-29Severely decreased G5 <15Kidney failure The eGFR was calculated using the Chronic Kidney Disease Epidemiology Collaboration (CKD-EPI) equation. Interpretation is based on recommendations of the National Kidney Foundation-Kidney Disease Outcomes Quality Initiative (NKF-KDOQI) published in 2014. Specimen Plasma specimen Performing Organization Address City/[facility]/Zipcode Phone Number [address] [address] PATHOLOGY AND GENOMIC 140 MEDICINE, [facility] * Manual differential (07/20/2018 9:35 PM COLLECTIONS ANALYST) Manual differential PERFORMED [facility] DEPARTMENT OF PATHOLOGY AND GENOMIC MEDICINE Neutrophils 65.0 39.0 - 69.0 % [facility] DEPARTMENT OF PATHOLOGY AND GENOMIC MEDICINE Lymphocytes 24.0 (L) 25.0 - 45.0 % [facility] DEPARTMENT OF PATHOLOGY AND GENOMIC MEDICINE Monocytes 8.0 0.0 - 10.0 % [facility] DEPARTMENT OF PATHOLOGY AND GENOMIC MEDICINE Eosinophils 3.0 0.0 - 5.0 % [facility] DEPARTMENT OF PATHOLOGY AND GENOMIC MEDICINE Basophils 0.0 0.0 - 1.0 % [facility] DEPARTMENT OF PATHOLOGY AND GENOMIC MEDICINE Metamyelocytes 0 % [facility] DEPARTMENT OF PATHOLOGY AND GENOMIC MEDICINE Promyelocytes 0 % [facility] DEPARTMENT OF PATHOLOGY AND GENOMIC MEDICINE Platelet slide review Decreased (A) [facility] DEPARTMENT OF PATHOLOGY AND GENOMIC MEDICINE Anisocytosis Moderate [facility] DEPARTMENT OF PATHOLOGY AND GENOMIC MEDICINE Polychromasia Moderate [facility] DEPARTMENT OF PATHOLOGY AND GENOMIC MEDICINE Ovalocytes Moderate [facility] DEPARTMENT OF PATHOLOGY AND GENOMIC MEDICINE [place] cells Moderate (A) [facility] DEPARTMENT OF PATHOLOGY AND GENOMIC MEDICINE Enlarged platelets Moderate (A) [facility] DEPARTMENT OF PATHOLOGY AND GENOMIC MEDICINE Performing Organization Address City/[facility]/Zipcode Phone Number [facility] DEPARTMENT [address] [place] [address] PATHOLOGY AND GENOMIC MEDICINE * CBC with platelet and differential (07/20/2018 9:35 PM COLLECTIONS ANALYST) WBC 5.58 4.50 - 11.00 k/uL [facility] RBC 3.36 (L) 4.40 - 6.00 m/uL [facility] HGB 10.1 (L) 14.0 - 18.0 g/dL [facility] HCT 28.6 (L) 41.0 - 51.0 % [facility] MCV 85.1 82.0 - 100.0 fL [facility] MCH 30.1 27.0 - 34.0 pg [facility] MCHC 35.3 31.0 - 37.0 g/dL [facility] RDW - SD 41.2 37.0 - 55.0 fL [facility] MPV 10.7 8.8 - 13.2 fL [facility] Platelet count 106 (L) 150 - 400 k/uL [facility] Neutrophils 65.0 39.0 - 69.0 % [facility] Lymphocytes 24.0 (L) 25.0 - 45.0 % [facility] Monocytes 8.0 0.0 - 10.0 % [facility] Eosinophils 3.0 0.0 - 5.0 % [facility] Basophils 0.0 0.0 - 1.0 % [facility] Specimen Blood Performing Organization Address City/State/Zipcode Phone Number [address] [place] [address] PATHOLOGY AND GENOMIC [facility] [address] [facility] [address] [place] [id number] [facility] [place] * Comprehensive metabolic panel (07/20/2018 9:35 PM COLLECTIONS ANALYST) Sodium 127 (L) 135 - 148 mEq/L [facility] Potassium 3.8 3.5 - 5.0 mEq/L [facility] Chloride 97 (L) 98 - 112 mEq/L [facility] CO2 27 24 - 31 mEq/L [facility] Anion gap 3@ANIO (L) 7 - 15 mEq/L [facility] BUN 11 8 - 23 mg/dL [facility] Creatinine 0.78 0.70 - 1.20 mg/dL [facility] Glucose 230 (H) 65 - 99 mg/dL [facility] Calcium 8.8 8.8 - 10.2 mg/dL [facility] Protein 6.4 6.3 - 8.3 g/dL [facility] PATHOLOGY AND [facility] Albumin 3.2 (L) 3.5 - 5.0 g/dL [facility] PATHOLOGY AND [facility] A/G ratio 1.0 0.7 - 3.8 [facility] Alkaline phosphatase 46 40 - 129 U/L [facility] AST 13 10 - 50 U/L [facility] ALT 12 5 - 50 U/L [facility] OF PATHOLOGY AND [facility] Total bilirubin 0.2 0.0 - 1.2 mg/dL [facility] PATHOLOGY AND [facility] Specimen Plasma specimen Performing Organization Address City/State/Zipcode Phone Number [address] [address] PATHOLOGY AND GENOMIC [address] [place] [address] * CT Stroke Brain Wo Contrast (07/20/2018 9:31 PM COLLECTIONS ANALYST) Narrative Performed At EXAMINATION: CT STROKE BRAIN [...] 07/20/2018 9:32 PM, with acknowledgement of understanding. [facility]-[id number] Procedure Note Interface, Radiology Results Incoming - 07/20/2018 9:39 PM COLLECTIONS ANALYST EXAMINATION: CT STROKE BRAIN WO CONTRAST CLINICAL [...] 07/20/2018 9:32 PM, with acknowledgement of understanding. [facility]-[id number] Performing Organization Address City/State/Zipcode Phone Number [facility] [address] [place] [address] after 12/29/2017 Insurance Payer Benefit Subscriber ID Type Phone Address Plan / Group [employer] xxxxxxxxx HMO -AMERIVANT AGE MCR HMO Advance Directives Patient has advance care planning documents on file. For more information, caroylne e contact: Benigno Martínez [address] [place] [address]
[2018-12-30] MEDS ORDERED: ASPIRIN 81 MG CHEW TAB PO ONE (11:45)
[2018-12-30 13:05] LABS: CLARITY,URINE SL CLOUDY (CLEAR); COLOR,URINE YELLOW (YELLOW)
[2018-12-30 13:06] LABS: BILIRUBIN,URINE NEGATIVE (NEGATIVE); KETONES,URINE NEGATIVE (NEGATIVE); LEUKOCYTE ESTERASE ,URINE 1+ (NEGATIVE); NITRITE,URINE NEGATIVE (NEGATIVE); PROTEIN,URINE DIPSTICK NEGATIVE (NEGATIVE); URINE UROBILINOGEN 0.2 mg/dL (0.2 - 1)
[2018-12-30 13:08] LABS: BACTERIA,URINE RARE /HPF; EPITHELIAL CELLS,URINE RARE /LPF
--- NOTE | 2018-12-30 14:08 | NUR ---
PT TO ER ROOM 2 AT THIS TIME.
--- NOTE | 2018-12-30 14:47 | Diagnostic Imaging Report ---
EXAMINATION: CHEST SINGLE (PORTABLE) INDICATION: Dyspnea. COMPARISON: CT chest 12/01/2018. FINDINGS: TUBES and LINES: Interval removal of right PICC. LUNGS: Lungs are well inflated. No evidence of lobar consolidation or pulmonary edema. There is mild patchy opacity at the left lower lung, likely atelectasis.. PLEURA: No pleural effusion or pneumothorax. HEART AND MEDIASTINUM: The cardiomediastinal silhouette is unremarkable. BONES AND SOFT TISSUES: No acute osseous lesion. Soft tissues are unremarkable. UPPER ABDOMEN: No free air under the diaphragm. IMPRESSION: No acute radiographic abnormality. Signed by: Dr. Marc Kim MD on 12/30/2018 2:44 PM
[2018-12-30 15:13] LABS: HEMATOCRIT 32.4 % (38.2-49.6); HEMOGLOBIN 10.9 g/dL (14.0-18.0); MEAN CORPUSCULAR HEMOGLOBIN 28.5 pg (28-32); MEAN CORPUSCULAR HGB CONC 33.6 g/dL (31-35); MEAN CORPUSCULAR VOLUME 84.6 fL (81-99); RED BLOOD COUNT 3.83 x10e6/uL (4.3-5.7); RED CELL DISTRIBUTION WIDTH 44.8 % (11.7-14.4)
[2018-12-30 15:14] LABS: EOSINOPHILS % 0.2 % (0.0-6.0); LYMPHOCYTES % 1.5 % (18.0-39.1); MONOCYTES % 0.4 % (4.4-11.3); NEUTROPHILS % 3.2 % (38.7-80.0); PLATELET COUNT 220 x10e3/uL (140-360)
[2018-12-30 15:34] LABS: ALANINE AMINOTRANSFERASE 14 IU/L (0-55); ALBUMIN 3.9 g/dL (3.5-5.0); ALBUMIN/GLOBULIN RATIO 1.1 (0.8-2.0); ALKALINE PHOSPHATASE 52 IU/L (40-150); ANION GAP 14.5 mmol/L (8-16); BLOOD UREA NITROGEN 11 mg/dL (7-26); BUN/CREATININE RATIO 13 (6-25); CALCIUM 9.8 mg/dL (8.4-10.2); CARBON DIOXIDE 22 mmol/L (22-29); CHLORIDE 108 mmol/L (98-107); CREATINE KINASE 112 IU/L (30-200); CREATININE, SERUM 0.86 mg/dL (0.72-1.25); EST GLOMERULAR FILTRATION RATE > 60 ML/MIN (60-); GLUCOSE 104 mg/dL (74-118); POTASSIUM 3.5 mmol/L (3.5-5.1); SODIUM 141 mmol/L (136-145)
[2018-12-30 15:35] LABS: LIPASE 59 U/L (8-78)
--- NOTE | 2018-12-30 16:03 | Diagnostic Imaging Report ---
EXAMINATION: Head CT HISTORY: Confusion COMPARISON: None. TECHNIQUE: Multidetector axial images were obtained without contrast from the foramen magnum to the vertex . The images were reconstructed using brain and bone algorithms. Thin section brain images were reformatted into coronal and sagittal planes. Image quality: Motion/streaking artifact limits the evaluation of the skull base and posterior cranial fossa. Dose modulation, iterative reconstruction, and/or weight based adjustment of the mA/kV was utilized to reduce the radiation dose to as low as reasonably achievable. FINDINGS: Parenchyma: 1. No abnormal densities. 2. No mass or hemorrhage. No CT evidence of acute territorial vascular insult. Extra-axial spaces:No abnormal density. No extra-axial fluid collections Brain volume: Normal for age. Ventricles: No hydrocephalus or displacement. Arteries: No density suggestive of thrombus. Dural sinuses: No abnormal density. Extra-axial spaces: No abnormal density. Foramen magnum: No mass, Chiari malformation, or basilar invagination. Sella: Enlarged, occupied by a large heterogeneous mostly soft tissue density sellar and suprasellar mass, measuring about 3 cm maximum height, the suprasellar extension is minimally abutting the inferior margin of the optic chiasm without definite compression. Possible lesion extension into the right cavernous sinus. There is associated thinning and remodeling of the floor of the sella. Paranasal/mastoid sinuses: Imaged portions unremarkable. Skull/Scalp: No lytic or blastic lesions. No fractures. IMPRESSION: 1. No acute intracranial abnormalities. 2. 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 A preliminary report was made available by Dr. Kim on 12/30/2018 at 13:12. Signed by: Dr. Krista Figueroa M.D. on 12/30/2018 4:00 PM
[2018-12-30] MEDS ORDERED: BACTRIM DS TAB1 EACH PO (17:57)
[2018-12-30 19:56] VITALS: BP 152/86
== END 2018-12-30 18:50 | disposition home or self-care (01) ==
LOC: ER 11:16
DX: R06.00 Dyspnea, unspecified (principal); N30.91 Cystitis, unspecified with hematuria; J44.1 Chronic obstructive pulmonary disease with (acute) exacerbation
CPT/HCPCS: 36415; 70450; 71045; 80053; 81001; 82550; 82553; 83605; 83690; 84484; 85025; 87086; 87186; 93005; 99284

== ENCOUNTER → 2019-02-16 | Day surgery (SDC) | payer MEDICARE ==
--- NOTE | 2019-02-15 09:30 | Diagnostic Imaging Report ---
EXAMINATION: PA and lateral views of the chest. COMPARISON: 12/30/2018 CLINICAL HISTORY: Preoperative study for urological procedure DISCUSSION: The lungs are well-inflated and without focal consolidation, pleural effusion, or pneumothorax. Cardiomediastinal contour and pulmonary vasculature are within normal limits. No acute osseous abnormality. IMPRESSION: No acute cardiopulmonary abnormalities. Signed by: Dr. John Wood M.D. on 02/15/2019 9:27 AM
[2019-02-15 09:44] LABS: BASOPHILS % 0.5 % (0.0-1.0); EOSINOPHILS # (AUTO) 0.1 (0.0-0.4); EOSINOPHILS % 1.8 % (0.0-6.0); HEMATOCRIT 35.7 % (38.2-49.6); HEMOGLOBIN 12.2 g/dL (14.0-18.0); LYMPHOCYTES # (AUTO) 2.1 (1.0-3.2); LYMPHOCYTES % 37.5 % (18.0-39.1); MEAN CORPUSCULAR HEMOGLOBIN 29.2 pg (28-32); MEAN CORPUSCULAR HGB CONC 34.2 g/dL (31-35); MEAN CORPUSCULAR VOLUME 85.4 fL (81-99); MONOCYTES # (AUTO) 0.4 (0.2-0.8); MONOCYTES % 6.6 % (4.4-11.3); NEUTROPHILS % 53.4 % (38.7-80.0); PLATELET COUNT 164 x10e3/uL (140-360); RED BLOOD COUNT 4.18 x10e6/uL (4.3-5.7); RED CELL DISTRIBUTION WIDTH 14.6 % (11.7-14.4)
[2019-02-15 09:56] LABS: ANION GAP 11.8 mmol/L (8-16); BLOOD UREA NITROGEN 12 mg/dL (7-26); BUN/CREATININE RATIO 13 (6-25); CALCIUM 9.8 mg/dL (8.4-10.2); CARBON DIOXIDE 26 mmol/L (22-29); CHLORIDE 105 mmol/L (98-107); CREATININE, SERUM 0.89 mg/dL (0.72-1.25); EST GLOMERULAR FILTRATION RATE > 60 ML/MIN (60-); GLUCOSE 129 mg/dL (74-118); POTASSIUM 4.8 mmol/L (3.5-5.1); SODIUM 138 mmol/L (136-145)
[~2019-02-16] MED LIST changes: +ACETAMINOPHEN 1000 MG/100 ML IV ONE; +B&O 60MG R/S 60 MG SUPP PR ONE; +BACTRIM DS TAB1 EACH PO; +BUPIVACAINE 0.25% 30ML SDV INJ ONE; +CEFAZOLIN SOD 1 GM/NS 50ML 50 ML IV ONE; +DEXAMETHASONE SOD PHOS INJ 4 MG/ML VIAL ONE; +EPHEDRINE SULFATE INJ 50 MG/10 ML SYR ONE; +FENTANYL CITRATE/PF 100MCG/2 ML INJ ONE; +FLOMAX0.4 MG PO; +GLYCOPYRROLATE INJ 1MG/ 5 ML SYR ONE; +IOPAMIDOL 610MG/1ML 300 MG/ML VIAL IV ONE; +IRON PO; +LEVOTHYROXINE50 MCG PO; +LEXAPRO10 MG PO; +LIDOCAINE HCL 2% LOCAL INJ 5 ML SDV VIAL INJ ONE; +LORAZEPAM1 MG PO; +MIDAZOLAM HCL 2 MG/2 ML VIAL ONE; +NEOSTIGMINE 1 MG/ML 10ML VIAL ONE; +ONDANSETRON HCL INJ 2MG/ML 2ML 2 MG/ML VIAL ONE; +PROPOFOL IV EMULSION 10 MG/ML 20 ML VIAL ONE; +SEVOFLURANE INHAL SOLN 250 ML PEN BTL ONE
--- OUTSIDE RECORDS SUMMARY | 2019-02-16 09:44 | XMS REPORT | Clinical Summary ---
Author Author [facility] [employer] Organization [facility] [employer] Address Unknown Phone Unavailable Care Team Providers Care Account Development Executive Name Role Phone Jenny Chacon MD PCP [...] Acute UTI 07/20/2018 Emergency Emergency Medicine after 02/15/2018 Social History Date Tobacco Use Types Packs/Day [...] Taken Vital Sign Reading 07/20/2018 9:14 PM CONDUIT MECHANIC Blood Pressure 149/70 07/20/2018 9:14 PM CONDUIT MECHANIC Pulse 63 07/20/2018 9:14 PM CONDUIT MECHANIC Temperature 36.2 C (97.2 F) 07/20/2018 9:14 PM CONDUIT MECHANIC Respiratory Rate 20 07/20/2018 9:14 PM CONDUIT MECHANIC Oxygen Saturation 99% - Inhaled Oxygen - Concentration 07/20/2018 9:14 PM CONDUIT MECHANIC Weight 83.9 kg (185 lb) 07/20/2018 9:14 PM CONDUIT MECHANIC Height 170.2 cm (5' 7") 07/20/2018 9:14 PM CONDUIT MECHANIC Body Mass Index 28.98 Plan of Treatment Health Maintenance Due Date Last Done Comments COLON CANCER SCREENING 2003 SHINGLES VACCINES (#1) 2003 65+ PNEUMOCOCCAL VACCINE 2018 (1 of 2 - PCV13) PNEUMOCOCCAL 2018 POLYSACCHARIDE VACCINE AGE 65 AND OVER INFLUENZA VACCINE 04/14/2019 Procedures Comments Procedure Name Priority Date/Time Associated Diagnosis URINALYSIS STAT 07/20/2018 10:00 PM CONDUIT MECHANIC GRAM STAIN Routine 07/20/2018 10:00 PM CONDUIT MECHANIC URINE CULTURE Routine 07/20/2018 10:00 PM CONDUIT MECHANIC MANUAL DIFFERENTIAL STAT 07/20/2018 9:35 PM CONDUIT MECHANIC ESTIMATED GFR STAT 07/20/2018 9:35 PM CONDUIT MECHANIC COMPREHENSIVE METABOLIC STAT 07/20/2018 PANEL 9:35 PM CONDUIT MECHANIC CBC WITH PLATELET AND STAT 07/20/2018 DIFFERENTIAL 9:[address] STROKE BRAIN WO STAT 07/20/2018 CONTRAST 9:31 PM CONDUIT MECHANIC after 02/15/2018 Results * Urinalysis (07/20/2018 10:00 PM CONDUIT MECHANIC) [facility] Glucose, UA Negative Negative [facility] Bilirubin, UA Negative Negative [facility] Ketones, UA Negative Negative [facility] Specific 1.010 1.001 - 1.035 DEPARTMENT gravity, [facility] Blood, UA Trace (A) Negative [facility] pH, UA 7.0 5.0 - 8.5 [facility] Protein, UA Negative Negative [facility] Urobilinogen, <2.0 <2.0 DEPARTMENT UA [facility] Nitrite, UA Negative Negative [facility] Leukocyte Large (A) Negative DEPARTMENT esterase, UA [facility] Color, UA Yellow [facility] Appearance, UA Clear DEPARTMENT [facility] Specimen Urine Performing Organization Address City/State/Zipcode Phone Number DEPARTMENT [address], [place] [address] PATHOLOGY AND GENOMIC [address] [place] [address] * Gram stain (07/20/2018 10:00 PM CONDUIT MECHANIC) Gram stain Occasional WBC's [facility] DEPARTMENT result No organisms seen OF PATHOLOGY Comment: AND GENOMIC Specimen Information MEDICINE Specimen Source: Urine Specimen Site: Urine, clean catch Specimen Urine - Urine, clean catch Performing Organization Address City/State/Zipcode Phone Number [facility] DEPARTMENT OF [address] [place] [address] PATHOLOGY AND GENOMIC MEDICINE * Urine culture (07/20/2018 10:00 PM CONDUIT MECHANIC) Urine culture Escherichia coli [facility] DEPARTMENT isolate 10-4 cfu/ml OF PATHOLOGY This isolate is a producer director of AND GENOMIC ESBL (extended spectrum beta MEDICINE lactamase).This organism may be clinically resistant to [...] FILOMENA >16 mcg/mL: Resistant Escherichia coli Ceftazidime FILOEMNA >16 mcg/mL: Resistant Escherichia coli Ciprofloxacin FILOMENA [...] coli Performing Organization Address City/State/Zipcode Phone Number [facility] DEPARTMENT [address] [place] [id number] PATHOLOGY AND GENOMIC MEDICINE * Estimated GFR (07/20/2018 9:35 PM CONDUIT MECHANIC) Estimated GFR >=90 mL/min/1.73 m2 DEPARTMENT Comment: [facility] PATHOLOGY [facility] AND [facility]IC rpretation [place] [address] EMERGENCY CARE >=90 Normal or high CENTER G2 60-89Mildly decreased [id number] Mildly to moderately decreased B1f87-14 Moderately to severely decreased G4 15-29Severely decreased G5 <15Kidney failure The eGFR was calculated using the Chronic Kidney Disease Epidemiology Collaboration (CKD-EPI) equation. Interpretation is based on recommendations of the National Kidney Foundation-Kidney Disease Outcomes Quality Initiative (NKF-KDOQI) published in 2014. Specimen Plasma specimen Performing Organization Address City/[facility]/Zipcode Phone Number [address] [address] PATHOLOGY AND GENOMIC [address] [place] [address] * Manual differential (07/20/2018 9:35 PM CONDUIT MECHANIC) Manual PERFORMED [facility] DEPARTMENT differential OF PATHOLOGY AND GENOMIC MEDICINE Neutrophils 65.0 39.0 - 69.0 % [facility] DEPARTMENT OF PATHOLOGY AND GENOMIC MEDICINE Lymphocytes 24.0 (L) 25.0 - 45.0 % [facility] DEPARTMENT OF PATHOLOGY AND GENOMIC MEDICINE Monocytes 8.0 0.0 - 10.0 % [facility] DEPARTMENT OF PATHOLOGY AND GENOMIC MEDICINE Eosinophils 3.0 0.0 - 5.0 % [facility] DEPARTMENT OF PATHOLOGY AND GENOMIC MEDICINE Basophils 0.0 0.0 - 1.0 % [facility] DEPARTMENT OF PATHOLOGY AND GENOMIC MEDICINE Metamyelocytes 0 % [facility] DEPARTMENT OF PATHOLOGY AND GENOMIC MEDICINE Promyelocytes 0 % [facility] DEPARTMENT OF PATHOLOGY AND GENOMIC MEDICINE Platelet slide Decreased (A) [facility] DEPARTMENT review OF PATHOLOGY AND GENOMIC MEDICINE Anisocytosis Moderate [facility] DEPARTMENT OF PATHOLOGY AND GENOMIC MEDICINE Polychromasia Moderate [facility] DEPARTMENT OF PATHOLOGY AND GENOMIC MEDICINE Ovalocytes Moderate [facility] DEPARTMENT OF PATHOLOGY AND GENOMIC MEDICINE [place] cells Moderate (A) [facility] DEPARTMENT OF PATHOLOGY AND GENOMIC MEDICINE Enlarged Moderate (A) [facility] DEPARTMENT platelets OF PATHOLOGY AND GENOMIC MEDICINE Specimen Performing Organization Address City/State/Zipcode Phone Number [facility] DEPARTMENT [address] [address] PATHOLOGY AND GENOMIC MEDICINE * CBC with platelet and differential (07/20/2018 9:35 PM CONDUIT MECHANIC) [facility] WBC 5.58 4.50 - 11.00 k/uL [facility] RBC 3.36 (L) 4.40 - 6.00 m/uL [facility] HGB 10.1 (L) 14.0 - 18.0 g/dL [facility] HCT 28.6 (L) 41.0 - 51.0 % [facility] MCV 85.1 82.0 - 100.0 fL [facility] MCH 30.1 27.0 - 34.0 pg [facility] MCHC 35.3 31.0 - 37.0 g/dL [facility] RDW - SD 41.2 37.0 - 55.0 fL [facility] MPV 10.7 8.8 - 13.2 fL [facility] Platelet count 106 (L) 150 - 400 k/uL [facility] Neutrophils 65.0 39.0 - 69.0 % [facility] Lymphocytes 24.0 (L) 25.0 - 45.0 % [facility] Monocytes 8.0 0.0 - 10.0 % [facility] Eosinophils 3.0 0.0 - 5.0 % [facility] Basophils 0.0 0.0 - 1.0 % [facility] Specimen Blood Performing Organization Address City/State/Zipcode Phone Number DEPARTMENT [address] [place] [address] PATHOLOGY AND GENOMIC [facility] [address] [place] [id number] [facility] * Comprehensive metabolic panel (07/20/2018 9:35 PM CONDUIT MECHANIC) Pathologist [facility] Sodium 127 (L) 135 - 148 mEq/L [facility] Potassium 3.8 3.5 - 5.0 mEq/L [facility]PART[facility]OLOGY [facility] Chloride 97 (L) 98 - 112 mEq/L [facility] CO2 27 24 - 31 mEq/L [facility] Anion gap 3@ANIO (L) 7 - 15 mEq/L [facility] BUN 11 8 - 23 mg/dL [facility] Creatinine 0.78 0.70 - 1.20 mg/dL [facility] Glucose 230 (H) 65 - 99 mg/dL [facility] Calcium 8.8 8.8 - 10.2 mg/dL [facility] Protein 6.4 6.3 - 8.3 g/dL [facility]OLOG[facility] Albumin 3.2 (L) 3.5 - 5.0 g/dL [facility] A/G ratio 1.0 0.7 - 3.8 [facility] Alkaline 46 40 - 129 U/L DEPARTMENT phosphatase OF PATHOLOGY [facility] AST 13 10 - 50 U/L DEPART[facility] PATHOLOGY [facility] ALT 12 5 - 50 U/L DEPART[facility]OLOG[facility] Total bilirubin 0.2 0.0 - 1.2 mg/dL [facility]OLOG[facility] Specimen Plasma specimen Performing Organization Address City/State/[facility] Phone Number [address] [address] PATHOLOGY AND GENOMIC [address] [facility] * CT Stroke Brain Wo Contrast (07/20/2018 9:31 PM CONDUIT MECHANIC) Specimen Narrative Performed At EXAMINATION: CT STROKE BRAIN [...] on a nonemergent basis. Findings discussed with TNUG TREVIÑO at 07/20/2018 9:32 PM, with acknowledgement of understanding. [facility]-[id number] Procedure Note Interface, Radiology Results Incoming - 07/20/2018 9:39 PM CONDUIT MECHANIC EXAMINATION: CT STROKE BRAIN WO CONTRAST CLINICAL [...] 07/20/2018 9:32 PM, with acknowledgement of understanding. [facility]-[id number] Performing Organization Address City/State/Zipcode Phone Number [place] [address] [place] [address] after 02/15/2018 Insurance Type Payer Benefit Subscriber ID Effective Phone Address Plan / Dates Group HMO [employer] AMER[employer] xxxxxxxxx [id number] -AMERIVANT resent AGE MCR HMO Advance Directives Patient has advance care planning documents on file. For more information, carolyne gibbs contact: Benigno Martínez [address] [place] [address]
--- OUTSIDE RECORDS SUMMARY | 2019-02-16 09:45 | XMS REPORT ---
Author Author Keily Solitario Organization [employer] Address Unknown Phone Unavailable Care Team Providers Care Critical Care Paramedic Name Role Phone Keily Solitario CP Unavailable Allergies No Known Allergies Problems Problem Type Condition Code Onset Dates Condition Status Problem Hypertension I10 Active Problem Hypothyroidism E03.9 Active Problem Hyperlipidemia E78.5 Active Assessment Hypothyroidism E03.9 Active Problem BPH (benign prostatic hyperplasia) N40.0 Active Problem Type 2 diabetes mellitus without complications E11.9 Active Medications No Known Medications Results No Known Results Summary Purpose [employer] Submission
--- OUTSIDE RECORDS SUMMARY | 2019-02-16 09:45 | XMS REPORT | Continuity of Care Document ---
Author Author [facility] Interface Address Unknown Phone Unavailable Problems Problem Status Onset Date Classification Date Reported Comments Source Hypertension Active Problem 02/03/2019 [place] Solitario Hypothyroidism Active Problem 02/03/2019 Adams Solitario Hyperlipidemia Active Problem 02/03/2019 Adams Solitario BPH Active Problem 02/03/2019 Adams Solitario Type 2 diabetes mellitus without complications Active Problem 02/03/2019 Adams Solitario Medications Medication Details Route Status Patient Instructions Ordering Provider Order Date Source levothyroxine 1 tab(s) orally Active 50 mcg (0.05 mg) orally once a day [facility] Adams Solitario diazepam 1/2 TAB. orally Active 10 [facility]n [facility] Adams Solitario zolpidem 1 tab(s) orally Active 10 mg orally once a day (at bedtime) [facility] Adams Solitario lisinopril 1 tab(s) orally Active 10 mg orally once a day [facility] Adams Solitario atorvastatin 1 tab(s) orally Active 20 mg orally once a day [facility] Adams Solitario Lantus 20 units subcutaneously Active 100 units/ml subcutaneously daily [facility] Adams Solitario metformin 1 tab(s) orally Active 1000 mg orally daily [facility] Adams Solitario Integra Plus 1 cap(s) orally Active Vitamin B Complex with C, Folic Acid and Iron orally once a day [facility] Adams Solitario tamsulosin 1 cap(s) orally Active 0.4 mg orally once a day [facility] Adasm Solitario Allergies, Adverse Reactions, Alerts Substance Category Reaction Severity Reaction type Status Date Reported Comments Source N.K.D.A. Adverse Reaction Info Not Available Adverse Reaction Active 11/15/2018 Adams Solitario Immunizations Immunization Date Given Site Status Last Updated Comments Source Results Order Name Results Value Reference Range Date Interpretation Comments Source Vital Signs Vital Sign Value Date Comments Source Weight 179 11/15/2018 Adams Solitario Height 67 11/15/2018 Adams Solitario Diastolic (mm Hg) 75 11/15/2018 Adams Solitario Systolic (mm Hg) 120 11/15/2018 Adams Solitario Encounters Location Location Details Encounter Type Encounter Number Reason For Visit Attending Provider ADM Date DC Date Status Source Procedures Procedure Code Date Perfomer Comments Source
--- OUTSIDE RECORDS SUMMARY | 2019-02-16 09:45 | XMS REPORT ---
Author Author Zaira Lin Organization [employer] Address Unknown Phone Unavailable Care Team Providers Care Home Care Administrator Name Role Phone Zaira Lin CP Unavailable Allergies, Adverse Reactions, Alerts Substance Reaction Event Type N.K.D.A. Info Not Available Non Drug Allergy Problems Problem Type Condition Code Onset Dates Condition Status Assessment Hyperlipidemia E78.5 Active Assessment Type 2 diabetes mellitus without complications E11.9 Active Assessment Hypertension I10 Active Assessment BPH (benign prostatic hyperplasia) N40.0 Active Problem Hypertension I10 Active Problem Hypothyroidism E03.9 Active Problem Hyperlipidemia E78.5 Active Assessment Hypothyroidism E03.9 Active Problem BPH (benign prostatic hyperplasia) N40.0 Active Problem Type 2 diabetes mellitus without complications E11.9 Active Medications Medication Code System Code Instructions Start Date End Date Status Dosage levothyroxine [facility] 12472796063 50 mcg (0.05 mg) orally once a day Active 1 tab(s) diazepam ND 03189014694 10 mg orally prn Active 1/2 TAB. zolpidem [facility] 61918075853 10 mg orally once a day (at bedtime) Active 1 tab(s) lisinopril ND 83395766009 10 mg orally once a day Active 1 tab(s) atorvastatin ND 44440876133 20 mg orally once a day Active 1 tab(s) Lantus ND 21177725705 100 units/ml subcutaneously daily Active 20 units metformin [facility] 82366969791 1000 mg orally daily Active 1 tab(s) Integra Plus [facility] 85923263787 Vitamin B Complex with C, Folic Acid and Iron orally once a day Active 1 cap(s) tamsulosin ND 14012852938 0.4 mg orally once a day Active 1 cap(s) Vital Signs Date/Time: November 15, 2018 BMI 28.03 Index Weight 179 lbs Height 67 in Blood Pressure Diastolic 75 mm Hg Blood Pressure Systolic 120 mm Hg Results No Known Results Summary Purpose [employer] Submission
[2019-02-16 15:25] VITALS: BP 134/78
--- NOTE | 2019-03-28 04:16 | Operative Report ---
DATE OF PROCEDURE: 02/16/2019 SURGEON: Catracho Zamorano MD PREOPERATIVE DIAGNOSES: 1. Phimosis. 2. Urinary tract infections. POSTOPERATIVE DIAGNOSES: 1. Phimosis. 2. Urinary tract infections. 3. Urethral stricture disease at the bulbar urethra and at the fossa navicularis. OPERATIONS PERFORMED: 1. Circumcision. 2. Penile nerve block (separate procedure performed for postoperative pain control and not required for the actual performance of surgery, which was done under general anesthesia). 3. Cystourethroscopy with calibration and dilation of urethral stricture (surgery performed for the diagnosis of the stricture). 4. Cystourethroscopy with bilateral ureteral catheterization and retrograde ureteropyelography (separate procedure performed for the urinary tract infections). 5. Interpretation of retrograde ureteropyelography. 6. Supervision of fluoroscopy, no radiologist present. ANESTHESIA: General. COMPLICATIONS: None. CLINICAL SUMMARY: Carlton Cheema ( 1955) is a 63-year-old man with the above preoperative diagnoses. He is brought for the above procedures. The patient has a history of stone disease and he also has a history of being status post transurethral resection of the prostate. He also has a history of urethral stricture disease. He is brought for the above procedures and he is aware of the risks of bleeding, infection, injury to adjacent structures, need for additional procedures and elected to proceed. OPERATIVE PROCEDURE IN DETAIL: Informed consent was verified. Carlton Darby was properly identified, taken to the operating room, and placed on the cystoscopy table in supine position. Anesthesia was uneventfully begun. The patient's genitalia were then prepared and draped in usual sterile fashion. Marcaine without epinephrine was utilized to infiltrate subcutaneously circumferentially at the base of the penis as well as in the region of the dorsal penile nerves. This was done for postoperative pain control and not required for the actual performance of surgery, which was done under general anesthesia. A circumferential incision was then made overlying the rider of the glans penis. The foreskin was fully retracted and secondary incision made approximately 4-5 mm away from the rider of the glans penis along the inner preputial skin. A sleeve circumcision was then performed. The foreskin was removed, pinpoint electrocautery was utilized to achieve hemostasis. The patient's incision was then approximated with 4-0 chromic suture with an excellent cosmetic result. The patient was then carefully and gently repositioned in the dorsal lithotomy position with all pressure points well padded. His genitalia were redraped. The 22.5-Wallisian cystoscope sheath with visual obturator in place was atraumatically inserted in the patient's urethra, it could not be advanced past the stricture at the fossa navicularis. The stricture was then dilated with sounds to 26-Wallisian in size. We then guided the cystoscope sheath down the urethra, which was otherwise open and except for exhibiting some blanching and some scarring to the bulbar region, we encountered another stricture. We dilated across this stricture with the cystoscope sheath and we passed through the normal sphincteric region, went through the prostate bed, which was significant for being status post transurethral resection of the prostate. There was some wide caliber scarring at the bladder neck, but the bladder neck did not appear to be visually obstructed. We entered the patient's bladder and we drained it. The cystoscope was then withdrawn. We then dilated the urethral stricture at the bulbar region to 26-Wallisian in size. We then reintroduced the cystoscope sheath under direct vision back into the patient's bladder. Panendoscopy revealed grade 2 trabeculations, but no tumors no stones, and no diverticula. Normally positioned ureteral orifices were identified. A ureteral catheter was used to cannulate each ureter and retrograde ureteropyelograms were performed. Interpretation of retrograde ureteropyelography contrast was instilled in retrograde fashion bilaterally. There were no tumors, no stones, and no diverticula. An Unobstructed drainage was observed bilaterally fluoroscopically. There was some more fullness in the right hand side in comparison to the left hand side, but in both sides, drained promptly. The patient's bladder was drained and cystoscope was withdrawn. Sterile dressings were applied of bacitracin ointment followed by Xeroform gauze, followed by loose-fitting Jarett and the patient was uneventfully reversed from anesthesia and taken to recovery room in stable condition. He tolerated the procedure well. Sponge, needle, and instrument counts were of course correct x2 at the end of the case. There were no complications to the procedure. Explicit postoperative instructions were given. We will follow the patient up in the office in approximately 1 month. Upon followup appointments, uroflowmetry and bladder ultrasonography will be performed. Catracho MD ELVER Zamorano /[id number]
== END | disposition home or self-care (01) ==
LOC: OR 09:42
PROVIDERS: ATTEND Urology
DX: N47.1 Phimosis (principal); N47.7 Other inflammatory diseases of prepuce; N39.0 Urinary tract infection, site not specified; N35.912 Unspecified bulbous urethral stricture, male; N32.89 Other specified disorders of bladder; E11.9 Type 2 diabetes mellitus without complications; I10 Essential (primary) hypertension; F32.9 Major depressive disorder, single episode, unspecified; F41.9 Anxiety disorder, unspecified; Z01.812 Encounter for preprocedural laboratory examination; Z01.818 Encounter for other preprocedural examination; Z79.4 Long term (current) use of insulin; Z79.84 Long term (current) use of oral hypoglycemic drugs; Z87.891 Personal history of nicotine dependence
CPT/HCPCS: 36415 ×2; 52281; 54161; 71046; 74420; 80048; 82948; 85025; 88304; C1758; J0131; J0690; J1100; J2001; J2250; J2405; J2704; J2710; J3490; Q9967; J3010